=== PATIENT | female | born 1985 | race Caucasian/White ===

== ENCOUNTER 2021-02-02 14:48 | Outpatient (REF) | payer OTHER, SELFPAY ==
[2021-02-04 07:52] LABS: SARS-COV-2 PCR UMBRL NEGATIVE
[2021-02-12 11:30] LABS: SARS-COV-2 PCR UMBRL NEGATIVE
[2021-02-21 13:33] LABS: SARS-COV-2 PCR UMBRL NEGATIVE
[2021-02-25 08:25] LABS: SARS-COV-2 PCR UMBRL NEGATIVE
[2021-03-07 12:04] LABS: SARS-COV-2 PCR UMBRL NEGATIVE
[2021-03-25 07:15] LABS: SARS-COV-2 PCR UMBRL NEGATIVE
[2021-04-01 07:51] LABS: SARS-COV-2 PCR UMBRL NEGATIVE
[2021-04-08 10:07] LABS: SARS-COV-2 PCR UMBRL NEGATIVE
[2021-04-16 08:57] LABS: SARS-COV-2 PCR UMBRL NEGATIVE
[2021-04-22 09:24] LABS: SARS-COV-2 PCR UMBRL NEGATIVE
[2021-04-30 08:25] LABS: SARS-COV-2 PCR UMBRL NEGATIVE
[2021-05-10 08:49] LABS: SARS-COV-2 PCR UMBRL NEGATIVE
[2021-05-12 18:20] LABS: SARS-COV-2 PCR UMBRL NEGATIVE
[2021-05-21 08:10] LABS: SARS-COV-2 PCR UMBRL NEGATIVE
[2021-05-28 08:48] LABS: SARS-COV-2 PCR UMBRL NEGATIVE
[2021-06-11 07:42] LABS: SARS-COV-2 PCR UMBRL NEGATIVE
[2021-06-18 08:04] LABS: SARS-COV-2 PCR UMBRL NEGATIVE
== END 2021-02-02 14:49 | disposition home or self-care (01) ==
LOC: HO.EMPCOV 14:48
PROVIDERS: Visit Provider Internal Medicine
DX: Z20.822 Contact with and (suspected) exposure to COVID-19 (principal)
CPT/HCPCS: 36415; U0003

== ENCOUNTER → 2022-09-02 14:57 | Outpatient (BNVA) | payer OTHER, SELFPAY | PROVIDERS: Visit Provider Physician Assistant | DX: Z13.89 Encounter for screening for other disorder (principal) ==

== ENCOUNTER → 2022-09-12 08:24 | Outpatient (BNVA) | payer OTHER, SELFPAY | PROVIDERS: Visit Provider Surgery | DX: Z13.89 Encounter for screening for other disorder (principal) ==

== ENCOUNTER 2022-09-13 07:25 | Outpatient (REF) | payer OTHER, SELFPAY ==
[2022-09-13 07:40] LABS: MANUAL DIFF FLAG NO
[2022-09-13 08:25] LABS: Basophils Percent Auto 0.5 % (0-2); Eosinophils Absolute Auto 0.1 X10*3/uL (0.0-0.4); Eosinophils Percent Auto 2.4 % (0-4); Hemoglobin 12.7 g/dl (12.0-16.0); Imm Gran Abs Auto 0.01 X10*3/uL (0.00-0.03); Imm Gran Pct Auto 0.2 % (0.0-0.4); Lymphocytes Absolute Auto 1.5 X10*3/uL (1.2-4.9); Lymphocytes Percent Auto 27.8 % (20-40); Mean Corpuscular HGB Conc 34.3 g/dl (31.0-35.0); Mean Corpuscular Hemoglobin 29.5 pg (27.0-33.0); Mean Corpuscular Volume 85.8 fL (80.0-98.0); Mean Platelet Volume 9.5 fL (9.4-12.3); Monocytes Absolute Auto 0.4 X10*3/uL (0.1-1.2); Monocytes Percent Auto 6.3 % (2-11); Neutrophils Absolute Auto 3.5 x10*3/uL (2.0-8.3); Neutrophils Percent Auto 62.8 % (45-73); Platelet Count 327 X10*3/uL (160-400); Red Blood Count 4.31 X10*6/uL (4.20-5.50); Red Cell Distribution Width 11.8 % (11.0-16.0); White Blood Count 5.5 X10*3/uL (4.8-10.8)
[2022-09-13 08:40] LABS: Estimated Average Glucose 100 mg/dL; Hemoglobin A1c % 5.1 %
[2022-09-13 09:21] LABS: Alanine Aminotransferase 10 U/L (0-31); Albumin Level 4.4 g/dL (3.5-5.0); Alkaline Phosphatase 57 U/L (39-117); Anion Gap 13 (12-20); Aspartate Amino Transferase 13 U/L (5-31); Bilirubin Total 0.8 mg/dL (0.0-1.0); Blood Urea Nitrogen 22 mg/dL (9-16); C Reactive Protein 0.37 mg/dL (< or = 0.50); Calcium 9.4 mg/dL (8.4-10.2); Carbon Dioxide 24 mmol/L (22-29); Chloride 108 mmol/L (96-108); Cholesterol 226 mg/dL; Estimated Glomerular Filt Rate > 60; Glucose Random 88 mg/dL (60-115); HDL Cholesterol 34 mg/dL; Iron 88 mcg/dL (30-160); LDL Cholesterol Calculated 157 mg/dl; Percent Iron Saturation 30 % (15-50); Potassium 4.1 mmol/L (3.3-5.1); Sodium 141 mmol/L (135-145); Total Iron Binding Capacity 297 mcg/dL (228-428); Total Protein 7.3 g/dL (6.5-8.0); Triglycerides 178 mg/dL; Unsaturated Iron Binding 209 ug/dL
[2022-09-13 09:36] LABS: Ferritin 133 ng/mL (10-122); Insulin 11 uU/mL (2-29); TSH reflex Free T4 4.11 uIU/mL (0.32-4.0); Vitamin D 25-OH Total 40.2 ng/mL (>30)
[2022-09-13 09:43] LABS: Folate 10.3 ng/mL (> or = 4.0); Vitamin B12 271 pg/mL (200-900)
[2022-09-13 10:17] LABS: Free T4 (Free Thyroxine) 1.09 ng/dL (0.71-1.85)
[2022-09-14 11:39] LABS: Calcium (PTHI) 9.3 mg/dL (8.6-10.2); PTHI 45 pg/mL (16-77)
[2022-09-16 16:38] LABS: Zinc 82 mcg/dL (60-130)
[2022-09-18] LABS: Vitamin A 63 mcg/dL (38-98)
[2022-09-19 12:48] LABS: Vitamin B1 13 nmol/L (8-30)
== END 2022-09-13 07:26 | disposition home or self-care (01) ==
LOC: HO.LAB 07:25
PROVIDERS: PCP Internal Medicine; Visit Provider Surgery
DX: E66.01 Morbid (severe) obesity due to excess calories (principal); E03.9 Hypothyroidism, unspecified; E78.5 Hyperlipidemia, unspecified
CPT/HCPCS: 36415; 80053; 80061; 82306; 82607; 82728; 82746; 83036; 83525; 83540; 83970; 84425; 84439; 84443; 84590; 84630; 85025; 86140

== ENCOUNTER → 2022-09-16 14:00 | Outpatient (REF) | payer OTHER, SELFPAY ==
--- NOTE | ~2022-09-16 | XR_ITS ---
EXAMINATION: XR CHEST CLINICAL INFORMATION: Morbid to severe obesity due to excess calories COMPARISON: None TECHNIQUE: 2 views of the chest were obtained. FINDINGS: No significant abnormality is noted involving the heart, lungs, mediastinum, bony thorax or soft tissues. XR/XR chest 2V IMPRESSION: Unremarkable chest examination.
--- NOTE | 2022-09-16 14:07 | ECG_ITS ---
Test Reason : obesity Blood Pressure : / mmHG Vent. Rate : 063 BPM Atrial Rate : 063 BPM P-R Int : 142 ms QRS Dur : 092 ms QT Int : 388 ms P-R-T Axes : 040 062 040 degrees QTc Int : 397 ms Normal sinus rhythm Normal ECG No previous ECGs available Referred By: Venu Samuels Electronically Signed By:BECKI WALTERS MD
== END ==
LOC: HO.CARD 14:00
PROVIDERS: PCP Internal Medicine; Visit Provider Surgery
DX: E66.01 Morbid (severe) obesity due to excess calories (principal); E03.9 Hypothyroidism, unspecified; E78.5 Hyperlipidemia, unspecified
CPT/HCPCS: 71046; 93005

== ENCOUNTER → 2022-09-20 08:24 | Outpatient (BNVA) | payer OTHER, SELFPAY | PROVIDERS: PCP Internal Medicine; Visit Provider Surgery | DX: Z11.0 Encounter for screening for intestinal infectious diseases (principal) | CPT/HCPCS: 99211 ==

== ENCOUNTER 2022-09-20 16:43 | Outpatient (REF) | payer OTHER, SELFPAY ==
[2022-09-21 15:08] LABS: H Pylori Breath Test Negative (Negative)
== END 2022-09-20 16:44 | disposition home or self-care (01) ==
LOC: HO.LNP 16:43
PROVIDERS: Visit Provider Surgery
DX: E66.01 Morbid (severe) obesity due to excess calories (principal); E03.9 Hypothyroidism, unspecified; E78.5 Hyperlipidemia, unspecified
CPT/HCPCS: 83013

== ENCOUNTER → 2022-09-29 15:32 | Outpatient (BNVA) | payer OTHER, SELFPAY | PROVIDERS: PCP Internal Medicine; Visit Provider Dietitian, Registered | DX: E66.01 Morbid (severe) obesity due to excess calories (principal); Z71.3 Dietary counseling and surveillance | CPT/HCPCS: 97802 ==

== ENCOUNTER → 2022-10-03 08:15 | Outpatient (BNVA) | payer OTHER, SELFPAY | PROVIDERS: PCP Internal Medicine; Referring Provider Internal Medicine; Visit Provider Counselor Mental Health | DX: F43.20 Adjustment disorder, unspecified (principal); E66.01 Morbid (severe) obesity due to excess calories | CPT/HCPCS: 90791 ==

== ENCOUNTER → 2022-10-10 09:02 | Outpatient (BNVA) | payer OTHER, SELFPAY | PROVIDERS: Visit Provider Surgery | DX: Z13.89 Encounter for screening for other disorder (principal) ==

== ENCOUNTER 2022-11-03 07:30 | Outpatient (REF) | payer OTHER, SELFPAY ==
--- NOTE | ~2022-11-03 | FL_ITS ---
EXAMINATION: XR FLUOROSCOPY UPPER GI WITH AIR CLINICAL INFORMATION: Morbid/severe obesity due to excess calories COMPARISON: None TECHNIQUE: Routine upper GI air-contrast study was performed in upright and lying position. FINDINGS: Following oral administration of thick barium and effervescent granules there is normal propagation of bolus from the oral cavity through the pharynx, esophagus without any evidence of obstruction, narrowing or stricture. The course, caliber and peristalsis of the stomach and the duodenum is normal. The mucosal pattern of the stomach and duodenum is normal. No gastroesophageal reflux or hiatal hernia FLUOROSCOPY TIME: 1.8 minutes DOSE AREA PRODUCT: 46.414 uGy-m2 (microgray-meter squared) FL/FL upper GI w air IMPRESSION: Unremarkable upper GI air-contrast study
--- NOTE | ~2022-11-03 | US_ITS ---
EXAMINATION: US COMPLETE ABDOMEN WITH LIVER ELASTOGRAPHY CLINICAL INFORMATION: Morbid obesity. COMPARISON: None. TECHNIQUE: Real-time imaging of the abdominal viscera. Noninvasive ultrasound liver fibrosis assessment is performed using Kali ElastPQ point quantification shear wave elastography (2D-SWE) with a C5-2 MHz transducer. Multiple elastography samples are obtained. FINDINGS: PANCREAS: Normal. The visualized pancreatic head and body are normal in appearance. The remainder of the pancreas is obscured from visualization by the overlying bowel gas. ABDOMINAL AORTA: The proximal, middle, and distal aortic segments are normal in caliber. INFERIOR VENA CAVA: Visualized portions are normal. LIVER: Normal. The liver demonstrates normal size, contour and echogenicity. No focal lesion or intrahepatic biliary duct dilatation. The right lobe measures 15.4 cm in length. The left lobe measures 8.3 cm in length. Portal flow is towards the liver (hepatopetal). Shear wave liver elastography median stiffness is 2.36 m/s (reference: normal median stiffness is 1.3 m/s or less). IQR/median stiffness to assess sampling precision is 0.13 (reference: good quality data set is IQR/median stiffness of 0.15 or less). GALLBLADDER: Normal. The gallbladder is physiologically distended without evidence of stones, sludge, polyps, wall thickening or pericholecystic fluid. COMMON BILE DUCT: Normal in caliber measuring 0.1 cm in diameter. RIGHT KIDNEY: Normal. There is mild pelviectasis, without som hydronephrosis. No renal calculi or focal parenchymal lesions. The kidney measures 12.1 cm in maximum dimension. LEFT KIDNEY: Normal. No hydronephrosis. No renal calculi or focal parenchymal lesions. The kidney measures 10.8 cm in maximum dimension. SPLEEN: Normal. The spleen measures 11.5 cm in maximum dimension. FREE FLUID: None. US/US abdomen comp w elastography IMPRESSION: Liver elastography: Measuremensts are consistent with compensated advanced chronic liver disease. REFERENCE: Society of Radiologists in Ultrasound Liver Stiffness Thresholds (2020): LIVER STIFFNESS THRESHOLDS: *Liver Stiffness equal or less than 1.3 m/s: High probability of being normal. *Liver Stiffness less than 1.7 m/s: In the absence of other known clinical signs, rules out compensated advanced chronic liver disease. *Liver Stiffness 1.7-2.1 m/s: Suggestive of compensated advanced chronic liver disease but need further test for confirmation. *Liver Stiffness over 2.1 m/s: Rules in compensated advanced chronic liver disease. *Liver Stiffness over 2.4 m/s: Suggestive of clinically significant portal hypertension. QUALITY OF DATA SET: *IQR/Median value equal or less than 0.15 implies a quality data set. *IQR/Median value over 0.15 implies a poor quality data set. SIGNIFICANT CHANGE FROM PRIOR EXAM: Significant change if liver stiffness measurement is 10% or greater from prior exam. OTHER CONSIDERATIONS: The stage of liver fibrosis may be overestimated in the setting of acute hepatitis, liver inflammation, elevated liver function tests, hepatic vascular congestion, obstructive cholestasis, non-fasting state, and infiltrative diseases such as amyloidosis and lymphoma. In some patients with NAFLD, the liver stiffness thresholds for compensated advanced chronic liver disease may be lower. In causes other than viral hepatitis and NAFLD, liver stiffness thresholds are not well established.
== END 2022-11-03 07:31 | disposition home or self-care (01) ==
LOC: HO.US 07:30
PROVIDERS: Visit Provider Surgery
DX: Z01.818 Encounter for other preprocedural examination (principal); E66.01 Morbid (severe) obesity due to excess calories; K21.9 Gastro-esophageal reflux disease without esophagitis; E78.5 Hyperlipidemia, unspecified
CPT/HCPCS: 74246; 76705; 76981

== ENCOUNTER → 2022-11-04 08:13 | Outpatient (BNVA) | payer OTHER, SELFPAY | PROVIDERS: Visit Provider Surgery | DX: E66.9 Obesity, unspecified (principal); Z68.36 Body mass index [BMI] 36.0-36.9, adult; K21.9 Gastro-esophageal reflux disease without esophagitis; R11.0 Nausea; Z01.818 Encounter for other preprocedural examination ==

== ENCOUNTER 2022-11-10 07:18 | Outpatient (REF) | payer OTHER, SELFPAY ==
[2022-11-10 07:35] LABS: MANUAL DIFF FLAG NO
[2022-11-10 08:09] LABS: Basophils Percent Auto 0.4 % (0-2); Eosinophils Absolute Auto 0.1 X10*3/uL (0.0-0.4); Eosinophils Percent Auto 1.4 % (0-4); Hematocrit 39.4 % (37.0-47.0); Hemoglobin 13.3 g/dl (12.0-16.0); Imm Gran Abs Auto 0.02 X10*3/uL (0.00-0.03); Imm Gran Pct Auto 0.4 % (0.0-0.4); Lymphocytes Percent Auto 19.2 % (20-40); Mean Corpuscular HGB Conc 33.8 g/dl (31.0-35.0); Mean Corpuscular Hemoglobin 29.4 pg (27.0-33.0); Mean Corpuscular Volume 87.2 fL (80.0-98.0); Mean Platelet Volume 10.6 fL (9.4-12.3); Monocytes Absolute Auto 0.4 X10*3/uL (0.1-1.2); Monocytes Percent Auto 7.6 % (2-11); Neutrophils Absolute Auto 3.6 x10*3/uL (2.0-8.3); Platelet Count 316 X10*3/uL (160-400); Red Blood Count 4.52 X10*6/uL (4.20-5.50); Red Cell Distribution Width 11.9 % (11.0-16.0); White Blood Count 5.1 X10*3/uL (4.8-10.8)
[2022-11-10 08:26] LABS: INTERNATIONAL NORM RATIO 1.1 (0.9-1.1); Prothrombin Time 12.4 SEC (10.0-13.1)
[2022-11-10 08:29] LABS: Partial Thromboplastin Time 33.6 SEC (26.0-36.4)
[2022-11-10 08:38] LABS: Alanine Aminotransferase 8 U/L (0-31); Albumin Level 4.6 g/dL (3.5-5.0); Alkaline Phosphatase 52 U/L (39-117); Anion Gap 15 (12-20); Aspartate Amino Transferase 12 U/L (5-31); Bilirubin Total 1.2 mg/dL (0.0-1.0); Blood Urea Nitrogen 16 mg/dL (9-16); C Reactive Protein 0.21 mg/dL (< or = 0.50); Calcium 9.9 mg/dL (8.4-10.2); Carbon Dioxide 26 mmol/L (22-29); Chloride 105 mmol/L (96-108); Cholesterol 179 mg/dL; Estimated Glomerular Filt Rate > 60; Glucose Random 76 mg/dL (60-115); HDL Cholesterol 35 mg/dL; LDL Cholesterol Calculated 126 mg/dl; Potassium 4.4 mmol/L (3.3-5.1); Sodium 142 mmol/L (135-145); Total Protein 7.2 g/dL (6.5-8.0); Triglycerides 91 mg/dL
[2022-11-10 09:06] LABS: Estimated Average Glucose 94 mg/dL; Hemoglobin A1c % 4.9 %
[2022-11-10 09:34] LABS: Insulin 6 uU/mL (2-29); TSH reflex Free T4 1.56 uIU/mL (0.32-4.0)
== END 2022-11-10 07:19 | disposition home or self-care (01) ==
LOC: HO.LAB 07:18
PROVIDERS: PCP Internal Medicine; Visit Provider Surgery
DX: E66.9 Obesity, unspecified (principal); Z68.36 Body mass index [BMI] 36.0-36.9, adult
CPT/HCPCS: 36415; 80053; 80061; 83036; 83525; 84443; 85025; 85610; 85730; 86140

== ENCOUNTER → 2022-11-11 12:51 | Outpatient (BNVA) | payer OTHER, SELFPAY | PROVIDERS: PCP Internal Medicine; Visit Provider Surgery ==

== ENCOUNTER 2022-11-15 09:23 | Inpatient (IN) | payer OTHER, SELFPAY ==
[2022-11-10 12:54] VITALS: BMI 35.9
--- NOTE | 2022-11-11 18:11 | MHC.SHP ---
Pre-Procedural Eval Section A Date of Service: 11/11/22 The patient is an INPATIENT: Yes The History & Physical has been completed within 30 days and I have reviewed it.: Yes Section B Chief Complaint: Obesity, unspecified Relevant Family History (Specify if Yes): Yes Relevant Social History: None Present Medications: None Medical History: No relevant PMH History of Previous Operations: No relevant previous surgery Allergies: Allergies Allergy/AdvReac Type Severity Reaction Status Date / Time No Known Allergies Allergy Verified 09/20/22 08:49 Review of Systems Sugical H&P ROS: Negative: Constitution, Cardiovascular, Respiratory, Neurological, Psychiatric, Hem-Onc, Allergic/Immunologic, Gastrointestinal, Genitourinary, Musculoskeletal, Integumentary, Endocrine and Eyes/Ears/Nose/Throat Exam Surgical H&P Exam: Normal: HEENT, Normal: Heart, Normal: Lungs, Normal: Extremities, Normal: Abdomen, Normal: Skin and Normal: Neurological Plan Diagnosis/Plan: Unchanged I have reviewed the history and physical and performed a pertinent physical examination on my patient. No changes have occurred unless specified. Time Spent With Patient Time: Total time managing care of this patient today ____ minutes.
--- NOTE | 2022-11-14 09:36 | HO.ANESPROP2 ---
Documented by User: Ayana Young NP 11/14/22 09:37 HPI - Anesthesia Eval Consult details Narrative: 37yo F for Gastrectomy Sleeve,EGD,poss diaphragmatic hernia,poss ventral hernia,poss open, PMFSH Active Problems Active Problems: All Active Problems (Updated 11/09/22 @ 08:36 by Lisbeth Vasquez RN) Adjustment disorder, unspecified (Acute) Obesity (Acute) BMI 37.0-37.9, adult (Acute) BMI 36.0-36.9,adult (Acute) Back pain (Acute) Hyperlipidemia (Acute) Hypothyroidism (Acute) Morbid obesity (Acute) Past Medical History Medical History (Updated 11/15/22 @ 10:27 by Venu Samuels MD) Back pain History of COVID-19 Hyperlipidemia Hypothyroidism Morbid obesity Family History Family History (Updated 09/02/22 @ 15:20 by SHANON Dumas) Mother Brazos's disease Father Diabetes Hypertension High cholesterol Sister No problems noted. Sister No problems noted. Sister No problems noted. Son No problems noted. Son No problems noted. Surgical History Surgical History (Updated 11/15/22 @ 14:02 by VLADISLAV Tatum) No pertinent past surgical history Social History Social History (Updated 09/02/22 @ 15:18 by SHANON Dumas) Are you a primary career and guidance counselor to a significant other at home: No Do you presently have visiting nurse or other home services: No Alcohol intake: never Patient Tobacco Use Status: Former Tobacco user Quit Date: age 22 Tobacco use type: Cigarette Years Smoked: 8 Use of substances other than those prescribed or required for medical reasons: No Have you been hit, kicked, punched, or otherwise hurt by someone within the past year? If so, by whom?: No Are you DNR?: No Advance Directives: No ( is primary contact) Advance Directives Information Provided: Yes (brochure mailed) Advance Directives on File: No Recently lost weight without trying: No Eating poorly because of decreased appetite: No Nutrition Risks: No Nutritional Risk Patient : No FDLMP: N/A-has IUD : No Poor oral hygiene: No (has some bone loss upper front teeth but nothing loose) Meds Allergies Allergy/AdvReac Type Severity Reaction Status Date / Time No Known Allergies Allergy Verified 11/15/22 09:27 Home Medications Medication Instructions Recorded Confirmed Last Taken Type IUD 1 ea vaginal ONCE 09/02/22 11/15/22 Unknown History cholecalciferol (vitamin D3) 50 50 mcg PO DAILY 09/02/22 11/15/22 11/14/22 History mcg (2,000 unit) capsule levothyroxine 50 mcg capsule 50 mcg PO DAILY 09/02/22 11/15/22 11/14/22 History Exam Exam Date and Time: November 14, 2022 0936 Height,Weight and Vital Signs: Height 5 ft 5.5 in Weight 99.337 kg Pertinent Lab Results Pertinent Lab Results: Laboratory Tests 11/10/22 07:30 Blood Type A Negative Antibody Screen NEGATIVE Laboratory Tests 11/10/22 11/10/22 07:30 07:30 WBC 5.1 Hgb 13.3 Hct 39.4 Plt Count 316 Sodium 142 Potassium 4.4 Chloride 105 Carbon Dioxide 26 BUN 16 Creatinine 0.90 Narrative Narrative: EKG 08/2022 Vent. Rate : 063 BPM ? ? Atrial Rate : 063 BPM ?? P-R Int : 142 ms? QRS Dur : 092 ms ? ? QT Int : 388 ms ? ? ? P-R-T Axes : 040 062 040 degrees ?? QTc Int : 397 ms ? Normal sinus rhythm Normal ECG No previous ECGs available Assessment and Plan Assessment Anesthesia Assessment: Chart Reviewed Documented by User: Tyler Knowles MD 11/15/22 16:24 REPLACED BY [facility] Past Medical History Medical History (Updated 11/15/22 @ 10:27 by Venu Samuels MD) Back pain History of COVID-19 Hyperlipidemia Hypothyroidism Morbid obesity Functional capacity: independent ambulation Family History Family History (Updated 09/02/22 @ 15:20 by SHANON Dumas) Mother Brazos's disease Father Diabetes Hypertension High cholesterol Sister No problems noted. Sister No problems noted. Sister No problems noted. Son No problems noted. Son No problems noted. Family history of problems with anesthesia: No Surgical History Surgical History (Updated 11/15/22 @ 14:02 by VLADISLAV Tatum) No pertinent past surgical history History of Problems with Anesthesia: No Social History Social History (Updated 09/02/22 @ 15:18 by SHANON Dumas) Are you a primary career and guidance counselor to a significant other at home: No Do you presently have visiting nurse or other home services: No Alcohol intake: never Patient Tobacco Use Status: Former Tobacco user Quit Date: age 22 Tobacco use type: Cigarette Years Smoked: 8 Use of substances other than those prescribed or required for medical reasons: No Have you been hit, kicked, punched, or otherwise hurt by someone within the past year? If so, by whom?: No Are you DNR?: No Advance Directives: No ( is primary contact) Advance Directives Information Provided: Yes (brochure mailed) Advance Directives on File: No Recently lost weight without trying: No Eating poorly because of decreased appetite: No Nutrition Risks: No Nutritional Risk Patient : No FDLMP: N/A-has IUD : No Poor oral hygiene: No (has some bone loss upper front teeth but nothing loose) Meds Allergies Allergy/AdvReac Type Severity Reaction Status Date / Time No Known Allergies Allergy Verified 11/15/22 09:27 Home Medications Medication Instructions Recorded Confirmed Last Taken Type IUD 1 ea vaginal ONCE 09/02/22 11/15/22 Unknown History cholecalciferol (vitamin D3) 50 50 mcg PO DAILY 09/02/22 11/15/22 11/14/22 History mcg (2,000 unit) capsule levothyroxine 50 mcg capsule 50 mcg PO DAILY 09/02/22 11/15/22 11/14/22 History Exam Airway Mallampati Class: III TM Dist: >3cm Neck ROM: Full Loose/Missing/Broken Teeth: Yes (Loose bottom teeth ) Heart: S1,S2 Lungs: b/l breath sounds Assessment and Plan Assessment Anesthesia Assessment: Anesthesia Plan Discussed Final Anesthetic Review Family History of Problems with Anesthesia: No History of Problems with Anesthesia: No NPO: Yes ASA Class: III Final Preanesthetic Review: Meds/Allgs Chart Reviewed, Consent Obtained/Reviewed and Anes Risks/Benef Reviewed Patient Risk: Intermediate Procedure Risk: Intermediate Anesthetic Plan Anesthetic Plan: GA Disposition: Standard PACU and Inp. Admit - Standard Bed
[2022-11-14 12:43] LABS: COVID-19 Test Negative (Negative); IDNOW Serial# 9DB6401D
[2022-11-15] VITALS (12 sets, daily range): BP systolic 110–132; BP diastolic 62–82; PULSE 72–92; RESP 16–24; TEMP 36.1–36.5; O2SAT 95–100
--- NOTE | 2022-11-15 09:28 | PHA.MEDREC ---
Pharmacy Consult ? Medication Reconciliation Pharmacy has reviewed the medication reconciliation completed by nursing.
[2022-11-15 09:38] LABS: UPreg QC Valid YES; Urine Pregnancy NEGATIVE (NEGATIVE)
[2022-11-15] MEDS: Lactated Ringers 1,000 ML 999 ML IV (09:57)
[2022-11-15] MEDS: Lactated Ringers 1,000 ML 100 ML IVCONT ×2 (09:57→13:59)
--- NOTE | 2022-11-15 10:23 | P.BOP_ITS ---
Brief Operative Note Date of Service: 11/15/22 Pre-op diagnosis: Severe obesity with comorbidities (see below) Post-op diagnosis: same Procedure: INITIAL PATIENT BMI ON PRESENTATION AT OUR OFFICE: 40.2 kg/m2 LAST BMI BEFORE SURGERY: 35.5 kg/m2 COMORBIDITIES: hypothyroidism, hyperlipidemia, back pain, livr fibrosis ?The patient presented to the Weight Management Program with significant obesity that was negatively impacting the patient's comorbidities as listed above.? The program is a phased program with a special focus on preoperative medical weight management to promote substantial weight loss and prepare the patients for the second phase of the program: bariatric surgery. The patient participated in an intensive weekly lifestyle ?intervention and exercise program during which the patient ?has lost between the initial office visit and the last preoperative visit 28.8lbs, or 11.75% of initial actual body weight. It was deemed appropriate for the patient to now have bariatric surgery. In light of the current Covid-19 pandemic and the well documented strong association of obesity and increased risk of worse outcomes if infected with Covid-19 (REFERENCES: https://pubmed.ncbi.nlm.nih.gov/69883331/ ,? https://pubmed.ncbi.nlm.nih.gov/56562934/ ), any delay in undergoing bariatric surgery may lead to the patient's worsening health condition and increased?risk of more severe Covid-19 disease if infected. In addition a recent?study from [facility] published in [employer] on 08/23/2021 ([email or web address]) found that, among patients with obesity, substantial weight loss achieved with surgery was associated with improved outcomes of COVID-19 infection. The findings suggest that obesity can be a modifiable risk factor for the severity of COVID-19 infection. In addition, the patient met the BMI-criteria for bariatric surgery based on the BMI on initial presentation. The patient should not be penalized for achieving such weight loss because ?it is not sustainable long-term without surgical intervention and it was achieved in preparation for bariatric surgery ?under my direction and based on my published research ([email or web address]).[email or web address] and? https://www.soard.org/article/E7393-7132(39)57662-X/pdf ) ?that a 10% preoperative weight loss improves long-term weight loss after surgery and reduces perioperative complications.? Insurance carriers such as [facility] have endorsed my recommendations ?and have included in their policies criteria to include a 10% preoperative weight loss requirement. PROCEDURE: Esophago-gastroscopy, laparoscopic sleeve gastrectomy and laparoscopic gastropexy INDICATIONS: This is a 37 year-old female who was electively scheduled for laparoscopic, possibly open sleeve gastrectomy. The risks and complications of the procedure were discussed with the patient in advance, particularly the possibility of ; pulmonary embolism; staple line leak; bleeding; GERD; cardiac, pulmonary, or renal complications; as well as long-term problems such as insufficient weight loss, vitamin deficiency, strictures, or ulcers. The patient understood all the risks, and was in agreement to proceed with surgery. DESCRIPTION OF PROCEDURE: After informed consent was obtained from the patient, the patient was given preoperative antibiotics, and was transferred to the operating room. After successful induction of general anesthesia, pneumatic compression devices were placed on both lower extremities. An upper endoscopy was performed next. The oropharynx and esophagus appeared to be within normal limits. There was no diaphragmatic hernia present consistent with the findings of the preoperative upper GI. The stomach was entered. Then after all fluid and air were suctioned and the stomach was fully decompressed, the scope was withdrawn and secured in the mid esophagus. The patient was then prepped and draped in the usual sterile manner, and abdominal access was established at the right upper quadrant with the Tee technique. A 12 mm blunt port was inserted, and the abdomen was insufflated with CO2 to a pressure of 15 mmHg. Under direct visualization, additional ports were placed, specifically two 5 mm Versi-step ports to the left upper quadrant, and a 5 mm Versi-Step port to the right upper quadrant. 1% lidocaine plain was used to infiltrate all port sites as well as all fascia defects. Using the EndoClose suture passer device, I placed a #1 Polysorb tie across the falciform ligament in order to retract it up against the abdominal wall and prevent injury of the ligament with our instruments during the procedure. Following that, the patient was placed in a steep reverse Trendelenburg position . An additional 5 mm port was placed to the right flank for the Mediflex retractor that was used to retract the left lobe of the liver. The gastro-esophageal fat pad was opened with the ultrasonic device (Thunderbeat, Olympus) and the anterior esophagus and hiatus were exposed. The angle of His was opened with the ultrasonic device the fundus of the stomach from any diaphragmatic and splenic attachments. I then opened the gastrocolic ligament between the transverse colon and the greater curvature of the stomach with the ultrasonic device to enter the lesser sac and facilitate the ligation of the short gastric vessels. I started at a mid-point along the greater curvature and using the Thunderbeat, all short gastric vessels were divided all the way to the angle of His until the left prem was completely dissected at its entirety. I then divided the gastro-colic ligament distally to a distance of about 3-4 cm proximal to the pylorus. The stomach was then divided transversely with one Endo KE-45 purple, two KE- 45 orange loads and three KE-6s0 articulating orange loads using the AEON stapler and loads. Every effort was made that the gastric sleeve had a tubular shape and an even caliber throughout. Once the sleeve resection was completed, the staple line of the gastric sleeve was reinforced with Hemoclips. The resected stomach was retrieved without difficulty from the Tee port. A gastropexy was then performed in order to prevent postoperative GERD and partial gastric volvulus. Several interrupted 2.0 Surgidac sutures were placed between the sleeve's staple line and the previously divided greater omentum and gastro-colic ligament using the Endo-Stitch device. ?An upper endoscopy was performed. There was no narrowing at the GE junction. The scope was easily advanced all the way to the pylorus which was clearly visualized. There was no narrowing anywhere and the sleeve's caliber was even throughout. The sleeve's staple line was inspected and there was no evidence of ischemia, bleeding or dehiscence. At that point the gastroscope was withdrawn from the patient?s mouth while we were decompressing the bowel and the stomach from any remaining air. I looked into the lesser sac to see how the sleeve was situating and it was situating well. There was no bleeding from the staple line, spleen, or short gastric vessels. The Mediflex retractor was removed, and the undersurface of the liver was inspected and there was no bleeding. The patient was placed in supine position. I closed the fascial defect of the 12 mm port site with a figure of eight #1 P olysorb suture. Then 30cc Ropivacaine plain with 10 mg of Dexamethasone were used to infiltrate the fascial closure as well as all skin incisions. A total of 7ml of Zynrelef was applied in the Tee wound. At this point, the abdomen was deflated, all ports were removed under direct vision, and no bleeding was noted from any of the port sites. The skin incisions were irrigated with saline and were closed with 4-0 absorbable monofilament sutures. Steri-Strips and OpSites were used to cover all incisions. The patient was extubated and was transferred in stable condition to the recovery room for further care. I was present and performed all dubon parts of the procedure. Ms. Tolbert was the corporate administrative assistant. There were no residents to assist with this case. Murray Samuels MD, PhD, FACS Surgeon: Venu Samuels MD Anesthesia: GETA, local and other (TAP block and 7ml Zynrelef) Was an Tariff Inspector used for this Procedure?: No Tariff Inspector: Ammy Tolbert Estimated blood loss (mL): 10 IV fluids (mL): 3,000 Urine output (mL): 0 (No Wiley to record output) Pathology: other (Stomach) Condition: stable Disposition: PACU
--- NOTE | 2022-11-15 10:26 | P.PNGS_ITS ---
Subjective Subjective Date of Service: 11/16/22 Interval history: Feels well. Mild incisional pain. She is tolerating phase 1 bariatric diet Physical Exam Vital Signs: Vital Signs: Last Vital Signs Temp 97.7 F 11/15/22 09:29 Pulse 92 11/15/22 09:29 Resp 16 11/15/22 09:29 BP 110/68 11/15/22 09:29 Pulse Ox 100 11/15/22 09:29 O2 Del Method 11/15/22 09:29 BMI result Body Mass Index 35.9 GI: Inspection: Yes normal to inspection, Yes incision (clean, dry and intact) and Yes obesity Palpation (GI): Soft to palpation Extrem: Right lower extremity: normal to inspection (no calf tenderness) Left lower extremity: normal to inspection (no calf tenderness) Objective Data Active Medications Fentanyl (Fentanyl Citrate/Pf 100 Mcg/2 Ml Vial) 25 mcg IVPUSH Q5M PRN; Protocol PRN Reason: Pain, Moderate (Pain Scale 4-6 Hydromorphone HCl (Hydromorphone Hcl 0.5 Mg/0.5 Ml Syringe) 0.25 mg IVPUSH Q5M PRN; Protocol PRN Reason: Pain, Severe (Pain Scale 7-10) Lactated Ringer's (Lr) 1,000 mls @ 100 mls/hr IVCONT .Q10H [facility] Last Admin: 11/15/22 09:57 Dose: 100 mls/hr Documented By: TYLER Lactated Ringer's (Lr) 1,000 mls @ 999 mls/hr IV .Q1H1M [facility] Stop: 11/15/22 11:30 Last Admin: 11/15/22 09:57 Dose: 999 mls/hr Documented By: TYLER Promethazine HCl 6.25 mg/ (Sodium Chloride) 50.25 mls @ 201 mls/hr IV ONCE PRN PRN Reason: Nausea and Vomiting Labs 11/15/22 13:51 11/15/22 13:51 Labs: Laboratory Results - last 24 hr 11/14/22 11/15/22 12:19 09:19 Urine Test NEGATIVE COVID-19 ([facility]) Negative COVID-19 Clin Com See Note Procedures Date of Service Date of Service: 11/16/22 Progress Note: A&P Assessment and plan (1) Obesity: Status: Acute Assessment and Plan: s/p laparoscopic sleeve gastrectomy and gastropexy Doing well Will check am labs and if OK the patient will be discharged home (2) BMI 35.0-35.9,adult: Status: Acute (3) Hyperlipidemia: Status: Acute (4) Hypothyroidism: Status: Acute (5) Back pain: Status: Acute (6) Liver fibrosis: Status: Acute Time Spent With Patient Time: Total time managing care of this patient today ____ minutes. Quality Stroke Does the patient have a stroke diagnosis?: No VTE Prior VTE?: No VTE Risk Level:: Surgical - moderate VTE Device Contraindication: N/A - Device Ordered VTE Drug Contraindication: Treatment Not Indicated
[2022-11-15 14:01] LABS: Hematocrit 37.2 % (37.0-47.0); Hemoglobin 12.1 g/dl (12.0-16.0)
--- NOTE | 2022-11-15 14:11 | P.DS_ITS ---
DS: Providers Provider Date of Service: 11/16/22 Date of admission: 11/15/22 09:23 Primary care physician: Susie Figueroa MD DS: Diagnosis Discharge Diagnosis (1) Obesity: Status: Acute (2) BMI 35.0-35.9,adult: Status: Acute (3) Hyperlipidemia: Status: Acute (4) Hypothyroidism: Status: Acute (5) Back pain: Status: Acute (6) Liver fibrosis: Status: Acute DS: Summary Hospital Course Hospital Course: ADMITTING DIAGNOSIS: morbid obesity,?hyppthyroidism, hyperlipidemia, back pain ? DISCHARGE DIAGNOSIS: same, s/p laparoscopic sleeve gastrectomy and gastropexy ? PAST SURGICAL HISTORY:?n/a ? PROCEDURE: upper endoscopy, laparoscopic sleeve gastrectomy and gastropexy ? DISCHARGE SUMMARY: ? History of Present Illness: ? The patient is a? 37? year-old woman with a BMI of? ?35.9 ? kg/m2 and associated co-morbidities as described above. The patient had extensive work-up, lost? 35.2 ? lbs preoperatively and was electively scheduled for laparoscopic, possible open sleeve gastrectomy and gastropexy. Risks and complications of the surgery were discussed with the patient in advance, particularly the possibility of , pulmonary embolism, anastomotic leak, bleeding, bowel injury, GERD, cardiac, renal or pulmonary complications. The patient understood all the risks and was in agreement with the surgical plan. ? Hospital Course: ? The patient underwent an uneventful laparoscopic sleeve gastrectomy with gastro pexy on the day of admission. Postoperatively, the patient was transferred to the surgical floor. The patient received IV Acetaminophen and IV dilaudid for pain control. Patient was started on bariatric phase 1 diet POD #0. On postoperative day one, the patient was feeling well without nausea, vomiting, fevers, or tachycardia. The patient had some mild incisional pain and the abdomen was soft.? ? On the morning of postoperative day one, the patient was continued on 1 ounce of water or ice every half hour. During the day, the patient did fairly well, having some incisional pain, but able to ambulate adequately and to tolerate liquids well. ? Since the patient is doing well, we decided that the patient was ready to be discharged. The patient was given instructions to follow-up with me next week and to call my office for any fever over 101, persistent abdominal pain, nausea, vomiting, GERD, symptoms of DVT such as calf tenderness, or leg swelling, or pulmonary embolism such as chest pain or shortness of breath.? The patient was also instructed to drink 40-60 ounces of liquids per day using the 1-ounce cups. The patient had been given prescriptions for Tylenol for pain, Zofran prn for nausea, and pantoprazole and carafate previously. The patient was encouraged to ambulate and use the incentive spirometer. The patient was allowed to shower, but no baths, and encouraged to stay active at home. All of these instructions were given to the patient personally. All questions were answered and the patient understood all instructions, the instructions were also given to the patient in print. Time Spent with Patient Time attestation: Total time managing care of this patient today ____ minutes. Discharge coordination time: Less than 30 minutes Quality: Safe Use of Opioids Does Pt have an Active Cancer Diagnosis on the Problem List?: No Quality: Stroke Does the patient have a stroke diagnosis?: No Physical Exam Vital Signs: Vital Signs: Last Vital Signs Temp 97.4 F 11/15/22 13:24 Pulse 76 11/15/22 13:54 Resp 21 H 11/15/22 13:54 BP 125/78 11/15/22 13:54 Pulse Ox 96 11/15/22 13:54 O2 Del Method 11/15/22 13:54 O2 Flow Rate 2 11/15/22 13:54 BMI result Body Mass Index 35.9 DS: Data Data Completed and Pending Pending studies at discharge: Pending at discharge 11/15/22 12:24 Surgical [PTH] Routine Labs on day of discharge: Laboratory Results - last 24 hr 11/15/22 11/15/22 09:19 13:51 Hgb 12.1 Hct 37.2 Urine Test NEGATIVE Discharge Plan Discharge Anticipated Discharge Date/Time: 11/16/22 10:00 Patient Disposition: Home, Self-Care Discharge Diagnosis: s/p laparoscopic sleeve gastrectomy and gastropexy Referrals: Susie Warren MD [Primary Care Provider] - 1 Week Discharge Medications: Continued levothyroxine 50 mcg capsule 50 mcg PO DAILY pantoprazole 40 mg tablet,delayed release (DR/EC) 40 mg PO DAILY Qty: 30 2RF Discontinued cholecalciferol (vitamin D3) 50 mcg (2,000 unit) capsule 50 mcg PO DAILY IUD 1 ea vaginal ONCE Discharge Orders: Discharge Order (Routine); Ordered 11/16/22 Ordered By: Venu Samuels Activity on Discharge: No heavy lifting Stand Alone Forms: Patient Portal Discharge page Care Plan Goals: weight loss Health Concerns: obesity Plan of Treatment: No tub baths, sex or returning to work until discussed at first post op appointment. No alcohol, tobacco or illegal drug use. Continue to use incentive spirometer hourly while awake. Walk in home for 5- 10 minutes every 2 hours during the first week. Wear abdominal binder with activity. Follow all meal plan instructions from your bariatric surgeon. Review bariatric handbook and call with any questions. Discharge Instructions 1. Please call your doctor or come back to the emergency room should any new symptoms arise. 2. Activity: abstain from alcohol,? limited stair climbing, no bending, no driving, no exercise, no illicit substances, no lifting, no sex, no tub bath, no work. 4. Diet: follow your bariatric surgeons recommendations for advancing diet. 5. Dressing Change/Wound Care: Your incisions are covered with waterproof dressings. You can shower with these and pat dry. Do not rub over dressings or incisions. If the area is tender, you may apply an ice pack for short intervals (no more than 20 minutes on, followed by at least 20 minutes off). Do not apply heat. Do not use creams, lotions, or topical antibiotics unless instructed to do so by your surgeon. 6. Call your doctor if: - Your temperature exceeds 101.5 F - You experience excessive pain or swelling - You have an unexpected reaction to medication - You have excessive bleeding - You experience continued vomiting/nausea - Your incision begins to separate - Your incision shows signs of infection such as increased redness, swelling, excessive pain, heat, or drainage (light blood or clear fluid is normal) General instructions: No lifting greater than 10 lbs for the next 6 weeks[address] driving within 24 hours of taking narcotic pain medications. If you do not move your bowels in the next 2 days, please take milk of magnesia over the counter. Please follow the post op diet and do not advance your diet until you are seen in the office in about 2 weeks. Please walk around your home every hour or two to prevent blood clots from forming in your legs. You do not need to wake from sleeping to walk. Please sleep in a bed or couch to prevent kinking at the hips and knees. Please take your incentive spirometer (your lung development specialist) home with you and use it for the next few days to prevent pneumonias. You may shower, no hot tubs, baths or swimming pools. Please call the office with any questions or concerns s uch as increasing abdominal pain, fever, chills, shortness of breath, chest pain, leg pain or swelling, or redness or drainage from your incisions. Please make sure you are consuming 40-60 ounces of total fluids per day. Avoid all carbonation. Do not hesitate to contact the office with any questions at . The patient's medical history has been reviewed and they are considered low risk for post op DVT and therefore DVT prophylaxis is not considered necessary. Travel after surgery was reviewed. The patient has not disclosed any travel plans during the first 30 days after surgery and they have been advised that within the first 30 days after surgery any bus, plane, train or car travel over 2 hours in duration is contraindicated due to the possibility of developing blood clots from immobility. Any travel, needs to include periods of ambulation of 10 minutes in duration every 2 hours.? The patient was instructed to discuss any plans for travel during this period with their bariatric surgeon. Assessment: s/p laparoscopic sleeve gastrectomy and gastropexy Discharge Date/Time: 11/16/22 09:29
[2022-11-15 14:26] LABS: Anion Gap 21 (12-20); Blood Urea Nitrogen 12 mg/dL (9-16); Calcium 8.9 mg/dL (8.4-10.2); Carbon Dioxide 18 mmol/L (22-29); Chloride 106 mmol/L (96-108); Creatinine Clr Calc Pharmacy 103.7; Estimated Glomerular Filt Rate > 60; Glucose Random 95 mg/dL (60-115); Potassium 4.3 mmol/L (3.3-5.1); Sodium 141 mmol/L (135-145)
[2022-11-15] MEDS: Metoclopramide HCl 10 MG/2 ML VIAL IVPUSH (15:23)
[2022-11-15] MEDS: ceFAZolin Sodium/Dextrose,Iso 2 GM/50 ML PIGGYBACK IV (16:09)
[2022-11-15] MEDS: Acetaminophen 1,000 MG/100 ML PIGGYBACK 16.7 MG IV ×2 (16:50→22:33)
[2022-11-15] MEDS: ondansetron HCL 4 MG/2 ML VIAL IVPUSH (18:17)
[2022-11-15] MEDS: Famotidine/PF 20 MG/2 ML VIAL IVPUSH (20:33)
[2022-11-16] MEDS: Lactated Ringers 1,000 ML 100 ML IVCONT (01:08)
[2022-11-16] MEDS: ondansetron HCL 4 MG/2 ML VIAL IVPUSH (02:31)
[2022-11-16 02:48] VITALS: BP 141/67; PULSE 81; RESP 16; TEMP 36.4; O2SAT 98
[2022-11-16] MEDS: Acetaminophen 1,000 MG/100 ML PIGGYBACK 16.7 MG IV (04:25)
[2022-11-16] MEDS: Levothyroxine Sodium 50 MCG TABLET PO (04:29)
[2022-11-16 06:12] LABS: MANUAL DIFF FLAG NO
[2022-11-16 06:29] LABS: Basophils Percent Auto 0.2 % (0-2); Hematocrit 36.2 % (37.0-47.0); Hemoglobin 11.9 g/dl (12.0-16.0); Imm Gran Abs Auto 0.02 X10*3/uL (0.00-0.03); Imm Gran Pct Auto 0.3 % (0.0-0.4); Lymphocytes Absolute Auto 0.6 X10*3/uL (1.2-4.9); Lymphocytes Percent Auto 9.4 % (20-40); Mean Corpuscular HGB Conc 32.9 g/dl (31.0-35.0); Mean Corpuscular Hemoglobin 29.6 pg (27.0-33.0); Mean Platelet Volume 10.8 fL (9.4-12.3); Monocytes Absolute Auto 0.5 X10*3/uL (0.1-1.2); Monocytes Percent Auto 6.8 % (2-11); Neutrophils Absolute Auto 5.5 x10*3/uL (2.0-8.3); Neutrophils Percent Auto 83.3 % (45-73); Platelet Count 305 X10*3/uL (160-400); Red Blood Count 4.02 X10*6/uL (4.20-5.50); Red Cell Distribution Width 12.1 % (11.0-16.0); White Blood Count 6.6 X10*3/uL (4.8-10.8)
[2022-11-16 07:02] LABS: Anion Gap 18 (12-20); Blood Urea Nitrogen 11 mg/dL (9-16); Calcium 8.9 mg/dL (8.4-10.2); Carbon Dioxide 17 mmol/L (22-29); Chloride 109 mmol/L (96-108); Creatinine Clr Calc Pharmacy 102.4; Estimated Glomerular Filt Rate > 60; Glucose Random 95 mg/dL (60-115); Potassium 4.7 mmol/L (3.3-5.1); Sodium 139 mmol/L (135-145)
[2022-11-16 07:09] VITALS: BP 106/58; PULSE 89; RESP 16; TEMP 37.1; O2SAT 96
[2022-11-16] MEDS: Famotidine/PF 20 MG/2 ML VIAL IVPUSH (07:14)
--- NOTE | 2022-11-16 07:41 | HO.POSTANES ---
Post Anesthesia Evaluation Post Anesthesia Evaluation Vital Signs: Vital Signs Temp Pulse Resp BP Pulse Ox O2 Del Method 11/16/22 07:09 98.7 F 89 16 106/58 L 96 Room Air 11/16/22 02:48 97.5 F 81 16 141/67 H 98 Room Air Anesthesia: General Endotracheal-GETA Mental Status: Awake Pain Control: Satisfactory Nausea/Vomiting: None Hydration: Adequate Anesthesia-Related Issues: No Anes. Related Issues
--- NOTE | 2022-11-16 09:10 | MHC.CM.PN ---
Addendum entered by Dayanara Carrillo 11/16/22 09:16: Patient is discharged to home self care. Patients is providing transportation. Original Note: FEMALE 37 S/P GASTRIC SLEEVE.She lives with and kids. She is independent with all functional mobility. Vaxxed for covid. Declined offer to document a HCP. DP home self care. will provide transportation.
== END 2022-11-16 09:29 | disposition home or self-care (01) | DRG 403 ==
LOC: HO.SSSA 14:09 → HO.S3 15:16
PROVIDERS: Nurse Practitioner; Physician Assistant Surgical; Admitting Provider Surgery; PCP Internal Medicine; Visit Provider Surgery
PROC: 0DB64Z3 Excision of Stomach, Percutaneous Endoscopic Approach, Vertical (ICD-10-PCS; CPT 43845; principal; 2022-11-15 12:50)
DX: E66.01 Morbid (severe) obesity due to excess calories (principal); K74.00 Hepatic fibrosis, unspecified; E03.9 Hypothyroidism, unspecified; E78.5 Hyperlipidemia, unspecified; M54.9 Dorsalgia, unspecified; Z68.35 Body mass index [BMI] 35.0-35.9, adult; Z20.822 Contact with and (suspected) exposure to COVID-19; Z87.891 Personal history of nicotine dependence; Z79.890 Hormone replacement therapy; Z79.899 Other long term (current) drug therapy
CPT/HCPCS: 36415; 80048; 81025; 85014; 85018; 85025; 86850; 86900; 86901; 87635; 88307; 88342; A4649; J0131; J0690; J1100; J1170; J2250; J2405; J2550; J2765; J3010

== ENCOUNTER → 2022-11-22 10:17 | Outpatient (BNVA) | payer OTHER, SELFPAY | PROVIDERS: PCP Internal Medicine; Visit Provider Physician Assistant Surgical ==

== ENCOUNTER → 2022-12-06 09:01 | Outpatient (BNVA) | payer OTHER, SELFPAY | PROVIDERS: PCP Internal Medicine; Visit Provider Dietitian, Registered | DX: E66.9 Obesity, unspecified (principal); Z68.32 Body mass index [BMI] 32.0-32.9, adult | CPT/HCPCS: 97803 ==

== ENCOUNTER → 2022-12-20 16:21 | Outpatient (BNVA) | payer OTHER, SELFPAY | PROVIDERS: PCP Internal Medicine; Visit Provider Dietitian, Registered | DX: E66.9 Obesity, unspecified (principal); Z68.31 Body mass index [BMI] 31.0-31.9, adult | CPT/HCPCS: 97803 ==

== ENCOUNTER → 2023-01-04 14:48 | Outpatient (BNVA) | payer OTHER, SELFPAY | PROVIDERS: PCP Internal Medicine; Visit Provider Anesthesiology | DX: G25.81 Restless legs syndrome (principal); Z98.84 Bariatric surgery status | CPT/HCPCS: 99202 ==

== ENCOUNTER → 2023-01-12 15:47 | Outpatient (BNVA) | payer OTHER, SELFPAY | PROVIDERS: PCP Internal Medicine; Visit Provider Dietitian, Registered | DX: E66.9 Obesity, unspecified (principal); Z68.30 Body mass index [BMI] 30.0-30.9, adult; Z71.3 Dietary counseling and surveillance | CPT/HCPCS: 97803 ==

== ENCOUNTER → 2023-02-07 08:47 | Outpatient (BNVA) | payer OTHER, SELFPAY | PROVIDERS: PCP Internal Medicine; Visit Provider Dietitian, Registered | DX: E66.3 Overweight (principal); R42 Dizziness and giddiness; L98.7 Excessive and redundant skin and subcutaneous tissue; K59.00 Constipation, unspecified; Z68.28 Body mass index [BMI] 28.0-28.9, adult; Z90.3 Acquired absence of stomach [part of]; Z98.84 Bariatric surgery status | CPT/HCPCS: 97803 ==

== ENCOUNTER 2023-02-08 13:10 | Outpatient (REF) | payer OTHER, SELFPAY ==
[2023-02-08 13:20] LABS: MANUAL DIFF FLAG NO
[2023-02-08 14:53] LABS: Basophils Percent Auto 0.5 % (0-2); Eosinophils Absolute Auto 0.1 X10*3/uL (0.0-0.4); Eosinophils Percent Auto 1.2 % (0-4); Hematocrit 36.4 % (37.0-47.0); Hemoglobin 11.7 g/dl (12.0-16.0); Imm Gran Abs Auto 0.02 X10*3/uL (0.00-0.03); Imm Gran Pct Auto 0.3 % (0.0-0.4); Lymphocytes Absolute Auto 1.8 X10*3/uL (1.2-4.9); Lymphocytes Percent Auto 27.1 % (20-40); Mean Corpuscular HGB Conc 32.1 g/dl (31.0-35.0); Mean Corpuscular Hemoglobin 29.2 pg (27.0-33.0); Mean Corpuscular Volume 90.8 fL (80.0-98.0); Monocytes Absolute Auto 0.5 X10*3/uL (0.1-1.2); Monocytes Percent Auto 8.1 % (2-11); Neutrophils Absolute Auto 4.2 x10*3/uL (2.0-8.3); Neutrophils Percent Auto 62.8 % (45-73); Platelet Count 301 X10*3/uL (160-400); Red Blood Count 4.01 X10*6/uL (4.20-5.50); Red Cell Distribution Width 13.2 % (11.0-16.0); White Blood Count 6.6 X10*3/uL (4.8-10.8)
[2023-02-08 15:51] LABS: TSH reflex Free T4 1.61 uIU/mL (0.32-4.0)
== END 2023-02-08 13:11 | disposition home or self-care (01) ==
LOC: HO.LAB 13:10
PROVIDERS: Visit Provider Physician Assistant
DX: Z98.890 Other specified postprocedural states (principal); Z90.3 Acquired absence of stomach [part of]
CPT/HCPCS: 36415; 84443; 85025

== ENCOUNTER → 2023-02-22 13:32 | Outpatient (BNVA) | payer OTHER, SELFPAY | PROVIDERS: PCP Internal Medicine; Visit Provider Dietitian, Registered | DX: E66.3 Overweight (principal); Z68.27 Body mass index [BMI] 27.0-27.9, adult | CPT/HCPCS: 97803 ==

== ENCOUNTER 2023-05-24 14:05 | Outpatient (AMB) | payer OTHER, SELFPAY ==
--- NOTE | 2023-05-24 14:27 | MHC.OFFVIS ---
Intake Vital Signs 05/24/23 14:30 Weight 166 lb BP 110/62 Blood Pressure Location Rt brachial Position Sitting Pulse Oximetry (%) 98 Oxygen Delivery Method Room Air Intake Visit Reasons: INP-Restless leg syndrome-lvm Intake Note: Pt is here to establish care for RLS Allergies No Known Allergies Allergy (Verified 05/24/23 14:32) Medication List - Last Reconciled 05/24/23 by Sahara Trejo MD iron,carbonyl-vitamin C 65 mg iron- 125 mg (Vitron-C) 1 tab PO BEDTIME levothyroxine 50 mcg PO DAILY ropinirole 1-4 tabs a sneeded for breakthrough pain orally daily; ropinirole ER 2 mg PO BEDTIME HPI HPI Comments History of Present Illness Details 38y/o female comes for evaluation and management of possible restless legs syndrome she reports discomfort at rest and worse at night.she describes the sensation as an annoying tingling sensation that improves with movement.she has trouble falling asleep because of her symptoms and she also has leg movements in sleep. The symptoms usually starts after 8 pm , it is rare during the day. But it can happen during long car ride. she has had these symptoms for several years but feels its worse now. she has frequent arousals at night and has excessive daytime fatigue.she was given 100mg gabapentin but it did not help her. [facility] Medical History (Updated 05/24/23 @ 14:58 by Sahara Trejo MD) Insomnia History of COVID-19 Back pain Hyperlipidemia Hypothyroidism Morbid obesity Surgical History H/O gastric sleeve No pertinent past surgical history Family History Mother Farnham's disease Father Diabetes Hypertension High cholesterol Sister No problems noted. Sister No problems noted. Sister No problems noted. Son No problems noted. Son No problems noted. Social History Household Members: Family Housing: Apartment Are you a primary rn intensive care unit to a significant other at home: No Do you presently have visiting nurse or other home services: No Alcohol intake: never Patient Tobacco Use Status: Former Tobacco user Quit Date: age 22 Tobacco use type: Cigarette Years Smoked: 8 service: No Current occupational status: employed Review of Systems Const Reports daytime sleepiness, Reports difficulty sleeping and Reports headache(s) Eyes Reports blurry vision ENT Reports headache(s) Musc Reports back pain Neuro Reports headache(s) Physical Exam Vital Signs: Last Vital Signs BP 110/62 05/24/23 14:30 Pulse Ox 98 05/24/23 14:30 Oxygen Delivery Method Room Air 05/24/23 14:30 Const General: cooperative, healthy appearing and comfortable Nutritional Appearance: average body habitus Orientation/consciousness: patient oriented x3 Eyes Pupils: Equal, round and reactive pupils present Neuro General: patient oriented x3, gait normal, tone normal, moves all extremities and no focal motor deficits Cranial nerves: Yes Facial sensation intact/muscles of mastication intact, Yes Equal, round and reactive pupils present, Yes Bilaterally intact EOM present, Yes Nystagmus not present, Yes Normal facial strength present, Yes Midline tongue present and Yes Symmetric palate elevation present Cognition (Neuro): normal cognition Gait exam (Neuro): Normal gait present Motor exam (neuro): 5/5 motor strength present throughout and Normal motor muscle tone present throughout Deep tendon reflexes (DTR's): Right triceps reflex intensity grade: 1+, Left triceps reflex intensity grade: 1+, Rt Biceps (C5, C6): 1+, Left biceps reflex intensity grade: 1+, Right brachioradialis reflex intensity grade: 2+, Left brachioradialis reflex intensity grade: 2+, Right patellar reflex intensity grade: 2+ and Left patellar reflex intensity grade: 2+ Coordination: [id number] test normal Assessment & Plan Assessment & Plan (1) Restless leg syndrome: Code(s): G25.81 - Restless legs syndrome (2) Insomnia: Comment: Likely related to restless legs syndrome and possible PLMS Code(s): G47.00 - Insomnia, unspecified Plan Reviewed labs- normal Ferritin TSH, CBC CMP, Mild anemia I will trial her on ropinirole XR 2mg qhs and ropinirole 0.25 mg as needed for breakthrough symptoms will consider sleep study Medications: New ropinirole ER 2 mg PO BEDTIME 30 tabs 6RF ropinirole 1-4 tabs a sneeded for breakthrough pain orally daily; 120 tabs 6RF Refilled iron,carbonyl-vitamin C 65 mg iron- 125 mg (Vitron-C) 1 tab PO BEDTIME 30 tabs 5RF Coding Level of Care Code New Pt Level 4 (83572) Diagnoses Restless leg syndrome G25.81 Insomnia G47.00
[2023-05-24 14:30] VITALS: BP 110/62; O2SAT 98
== END 2023-05-24 15:00 | disposition home or self-care (01) ==
PROVIDERS: Visit Provider Psychiatry & Neurology Neurology
DX: G25.81 Restless legs syndrome (principal); G47.00 Insomnia, unspecified
CPT/HCPCS: 99204

== ENCOUNTER → 2023-05-24 14:05 | Outpatient (BNVA) | payer OTHER, SELFPAY | PROVIDERS: Visit Provider Psychiatry & Neurology Neurology ==

== ENCOUNTER 2024-11-25 12:55 | Outpatient (AMB) | payer OTHER, SELFPAY ==
--- NOTE | 2024-11-25 12:57 | MHC.OFFVISWM ---
VS Expanded 11/25/24 13:05 BP 111/58 L Blood Pressure Location Rt brachial Blood Pressure Position Sitting Pulse 5 L Pulse Source Pulse Oximeter Temp 97.2 F Temperature Source Temporal Artery Scan Pulse Oximetry 97 Oxygen Delivery Method Room Air Height 5 ft 5.5 in Weight 204 lb BMI 33.4 Body Fat % 36.0 Body Fat Mass 73.4 Fat Free Mass 130.6 Visceral Fat Rating 8.0 Body Water % 45.7 Body Water Mass 93.2 Muscle Mass/Score 123.8 Basal Metabolic Rate/Score 1,784 Intake Visit Reasons: (OV) PO LSG 11/15/22 GLP-1 Button Facing Machine Operator Required: No Allergies No Known Allergies Allergy (Verified 11/25/24 13:07) Medication List - Last Reconciled 11/25/24 by VLADISLAV Majano levothyroxine 50 mcg PO DAILY ropinirole 1-4 tabs a sneeded for breakthrough pain orally daily; ropinirole ER 2 mg PO BEDTIME HPI Comments Details: Patient is a pleasant 39-year-old female who returns to the office today in follow-up. She is a proximally 2 years post sleeve gastrectomy performed on 11/15/2022. Last seen in the office in January 2023. Weight at that time was 168 lb. Weight today is 204 lb. With a BMI of 33.4. preop weight was 216 lb.She states that she did not follow-up in the office for about a year and a half as work got away from her and scheduling issues. She is now excited and engaged to returned to the program. Not taking mvi Meal plan: shake Premier protein rtd x 2 protein, rice, pasta, veg protein bar pure protein or quest Exercise plan: tore a tendon in her left ankle last summer and is going to need surgery. Any post op complications: none JERRY: never DM: never HTN: [never Hyperlipidemia: resolved GERD:?0-5 scale ??0 = no symptoms ??1 = symptoms noticeable but not bothersome 2 =symptoms bothersome but not daily ? 3 = symptoms bothersome and daily 4 = symptoms affect daily activities 5 = symptoms are incapacitating, unable to do daily activities ? How bad is the heartburn: 0 ? Heartburn while lying down: 0 ? Heartburn when standing up: 0 ? Heartburn after meals: 0 ? Does heartburn change your diet: 0 ? Does heartburn wake you up from sleep: 0 ? Do you have difficulty swallowin ? Do you have pain with swallowin ? If you take medicine for your reflux, does this affect your daily life: 0 Satisfaction with present condition - satisfied or not satisfied: dissatisfied [facility] Medical History Insomnia History of COVID-19 Back pain Hyperlipidemia Hypothyroidism Morbid obesity Surgical History H/O gastric sleeve No pertinent past surgical history Family History Mother Carmel's disease Father Diabetes Hypertension High cholesterol Sister No problems noted. Sister No problems noted. Sister No problems noted. Son No problems noted. Son No problems noted. Social History Household Members: Family Housing: Apartment Are you a primary career development manager to a significant other at home: No Do you presently have visiting nurse or other home services: No Alcohol intake: never Patient Tobacco Use Status: Former Tobacco user Tobacco use type: Cigarette Years Smoked: 8 service: No Current occupational status: employed Physical Exam Const General: cooperative and no acute distress Orientation/consciousness: patient oriented x3 Resp Effort & Inspection: normal respiratory effort Auscultation: clear to auscultation bilaterally Cardio Rate: regular rate Rhythm: regular rhythm GI Inspection: Yes normal to inspection and Yes incision (well healed) Palpation (GI): Soft to palpation and no masses Neuro General: patient oriented x3 Assessment & Plan Assessment & Plan (1) S/P laparoscopic sleeve gastrectomy: Code(s): Z98.84 - Bariatric surgery status Category: Surgical Plan: we will order postop yearly labs. Discussed the importance of following the meal plan and exercise plan Her exercise is somewhat limited due to left ankle injury and planned ankle surgery due to tendon disruption however she will try to do as much as she can. Ultimate goal will be burning 300 calories per day. She will be given a new meal plan: based upon waking at 6 am and bed at 10 pm 7-9 am Half ready to drink Premier protein shake mixed with 4 oz of unsweetened almond milk 11-1 other 1/2 of shake 4 pm meal with 7 forks of protein and 7 forks of veggies [phone] Quest or pure protein bar Patient given my cell phone number so that she may send her weight is weekly and text with any questions or concerns. Return to clinic 1 month Orders: Orders Insulin Today E03.9 - Hypothyroidism, unspecified, E78.5 - Hyperlipidemia, unspecified, Z98.84 - Bariatric surgery status Hemoglobin A1c Today E03.9 - Hypothyroidism, unspecified, E78.5 - Hyperlipidemia, unspecified, Z98.84 - Bariatric surgery status Comprehensive Met. Panel Today E03.9 - Hypothyroidism, unspecified, E78.5 - Hyperlipidemia, unspecified, Z98.84 - Bariatric surgery status TSH reflex Free T4 Today E03.9 - Hypothyroidism, unspecified, E78.5 - Hyperlipidemia, unspecified, Z98.84 - Bariatric surgery status Complete Blood Count Auto Diff Today E03.9 - Hypothyroidism, unspecified, E78.5 - Hyperlipidemia, unspecified, Z98.84 - Bariatric surgery status Lipid Panel Today E03.9 - Hypothyroidism, unspecified, E78.5 - Hyperlipidemia, unspecified, Z98.84 - Bariatric surgery status IRON PROFILE Today E03.9 - Hypothyroidism, unspecified, E78.5 - Hyperlipidemia, unspecified, Z98.84 - Bariatric surgery status Vitamin B12 and Folate Today E03.9 - Hypothyroidism, unspecified, E78.5 - Hyperlipidemia, unspecified, Z98.84 - Bariatric surgery status Zinc Today E03.9 - Hypothyroidism, unspecified, E78.5 - Hyperlipidemia, unspecified, Z98.84 - Bariatric surgery status C Reactive Protein Today E03.9 - Hypothyroidism, unspecified, E78.5 - Hyperlipidemia, unspecified, Z98.84 - Bariatric surgery status Vitamin B1 Today E03.9 - Hypothyroidism, unspecified, E78.5 - Hyperlipidemia, unspecified, Z98.84 - Bariatric surgery status Vitamin A Today E03.9 - Hypothyroidism, unspecified, E78.5 - Hyperlipidemia, unspecified, Z98.84 - Bariatric surgery status Ferritin Today E03.9 - Hypothyroidism, unspecified, E78.5 - Hyperlipidemia, unspecified, Z98.84 - Bariatric surgery status Vitamin D 25-OH Total Today E03.9 - Hypothyroidism, unspecified, E78.5 - Hyperlipidemia, unspecified, Z98.84 - Bariatric surgery status
[2024-11-25 13:05] VITALS: BP 111/58; PULSE 5; TEMP 36.2; O2SAT 97; BMI 33.4
--- OUTSIDE RECORDS SUMMARY | 2024-11-25 14:30 | XMS_ITS | Clinical Summary ---
Author Organization 175 [facility] Address [address] [place] [address] Phone Care Team Providers Care Medical Geneticist Name Role Phone Susie Thompson MD Primary Care Prov ider Allergies Active Allergy Reactions Criticality Noted Date Comments House Dust 09/25/2018 Tree And Shrub Pollen 09/25/2018 TREES Medications diclofenac (VOLTAREN) 1 % topical gel Apply 4 g topically 2 times daily. 4 Active rOPINIRole XL (REQUIP XL) 2 mg 24 hr tablet TAKE 1 TABLET BY MOUTH AT BEDTIME 4 Active UNABLE TO FIND IUD'S IU by Intrauterine route Active levothyroxine (SYNTHROID, LEVOTHROID) 50 mcg tablet Take 1 tablet (50 mcg total) by mouth 1 (one) time each day. 90 tablet 3 5 Active Active Problems Problem Noted Date Diagnosed Date Tear of peroneal tendon of left foot 11/12/2024 Generalized pruritus 11/12/2018 Hypothyroidism 11/12/2018 Dyslipidemia 12/31/2015 Vitamin D deficiency 12/31/2015 Obesity 02/03/2010 Encounters Date Type Department Care Team Description 11/12/2024 2:15 PM EDT Office Visit Orthopedic Surgery [facility] 250 175 [facility] [address] [place] [address] Jeremiah Lazo, DPM Tear of peroneal tendon of left foot (Primary Dx) 10/16/2024 11:16 AM EST - 10/16/2024 11:59 PM EST Hospital Encounter [facility] MRI [address] [place] [address] High ankle sprain, left, sequela Discharge Disposition: Home or Self Care 10/07/2024 2:30 PM EST Office Visit Orthopedic Surgery - [place] 250 175 [facility] [address] [place] [address] Jeremiah Lazo, DPM High ankle sprain, left, sequela (Primary Dx); Left ankle pain; Tendinitis of left ankle from Last 3 Months Immunizations Name Administration Dates Next Due H1N1 Inj Preservative Free 07/14/2009 Hepatitis B ([place] , Recombivax HB-Adult) 19yo and older 05/12/2010,12/09/2009,11/11/2009 Influenza Quadravalent, MDCK , 0.5ml, preservative free (Flucelvax) 6mo and older 07/03/2020 Influenza trivalent, 0.5mL, preservative free (Fluarix; FluLaval; Fluzone) ages 6mo and older (Afluria) 3 years and older 06/05/2012,07/08/2010 MMR, measles mumps and rubel la Live (Priorix; M-M-R II) 12mo and older 06/12/2012 PPD Test 11/17/2010 Tdap Tetanus diptheria acell ular pertussis (Boostrix; Adacel) 7yo and older 05/31/2024,02/09/2014,07/14/2009 Surgical History Surgery Date Site/Laterality Comments OTHER SURGICAL HISTORY 11/15/2022 PROCEDURE: [place] GASTRIC RSTCV W/PRTL GASTRECTOMY 50-100 CM; COMMENT: Gastric sleeve, [facility] Medical History Medical History Date Comments Vitamin D deficiency DX:Vitamin D deficiency Obesity DX:Obesity Dyslipidemia DX:Dyslipidemia Family History Medical History Relation Name Comments Diabetes Father Hyperlipidemia Father Hypertension Father Alcohol abuse Maternal Grandfather Other: Huntingtons Disease. Maternal Grandmother Other: Hodge's Disease Mother Diabetes Paternal Grandmother Thyroid disease Sister 1 Hyperlipidemia Sister 2 No Known Problems Sister 3 No Known Problems Son 1 No Known Problems Son 2 Breast cancer Neg Hx Colon cancer Neg Hx Ovarian cancer Neg Hx Uterine cancer Neg Hx Relation Name Status Comments Father Alive dm, htn, Maternal Grandfather Maternal Grandmother Mother Paternal Grandfather Paternal Grandmother Sister 1 Alive Sister 2 Alive Sister 3 Alive Son 1 Alive Son 2 Alive Social History Tobacco Use Types Packs/Day Years Used Date Smoking Tobacco: Former Smokeless Tobacco: Never Tobacco Cessation:Counseling Given: Not Answered Alcohol Use Standard Drinks/Week Comments Yes 0 (1 standard drink = 0.6 oz pur e alcohol) Comments Unknown Sex and Gender Information Value Date Recorded Sex Assigned at Not on file Legal Sex Female 9:10 AM EST Gender Identity Not on file Sexual Orientation Not on file Obstetrics History Last Filed Vital Signs Vital Sign Reading Time Taken Comments Blood Pressure 84/60 05/31/2024 7:40 AM EDT Pulse 72 05/31/2024 7:40 AM EDT Temperature - - Respiratory Rate - - Oxygen Saturation - - Inhaled Oxygen Concentration - - Weight 88.9 kg (196 lb) 11/12/2024 2:13 PM EDT Height 167.6 cm (5' 5.98 ) 11/12/2024 2:13 PM ED T Body Mass Index 31.65 11/12/2024 2:13 PM EDT Plan of Treatment Upcoming Encounters Date Type Department Care Team (Late st Contact Info) Description 12/02/2024 2:30 PM EDT Office Visit Adult Medicine [address] [phone] Susie Thompson MD [address] [place] [phone] 12/18/2024 10:15 AM EDT Office Visit Orthopedic Surgery - [place] [address] [phone] Jeremiah Lazo DPDeb [address] [address] Scheduled Procedures Name Priority Associated Diagnoses Date/Ti me REPAIR TENDON LEG Tear of peroneal tendon of left foot Health Maintenance Due Date Last Done Comments Social Influencers of Health Screening 08/06/2022 COVID-19 Vaccine ( season) 2024 07/16/2021, 06/18/2021 Influenza Vaccine (#1) 2024 , 06/05/2012, 07/08/2010, Additional history exists Cervical Cancer Screening: HPV 09/10/2024 09/10/2019 Depression Screening 12/26/2024 12/27/2023 Breast Cancer Screening 06/21/2026 06/21/2024, 06/21 Cholesterol Screening (Lipid Panel) 06/04/2029 06/04/2024, 06/04/2024 DTaP,Tdap,and Td Vaccines (4 - Td or Tdap) 05/31/2034 05/31/2024, 02/09/2014, 07/14/2009 Hepatitis B Vaccines Completed 05/12/2010, 12/09/2009, 11/11/2009 MMR Vaccines Aged Out 06/12/2012 No longer eligi ble based on patient's age to complete this topic HIV Screening Completed 11/29/2017 Hepatitis C Screening Completed 11/29/2017 HIB Vaccines Aged Out No longer eligi ble based on patient's age to complete this topic HPV Vaccines Aged Out No longer eligi ble based on patient's age to complete this topic Hepatitis A Vaccines Aged Out No long er eligible based on patient's age to complete this topic IPV Vaccines Aged Out No longer eligi ble based on patient's age to complete this topic Meningococcal ACWY Vaccine Aged Out N o longer eligible based on patient's age to complete this topic Meningococcal B Vacine Aged Out No lo nger eligible based on patient's age to complete this topic Pneumococcal Vaccine: Pediatrics (0 to 5 Years) and At-Risk Patients (6 to 64 Years) Aged Out No longer eligible based on patient's age to complete this topic RSV Immunization Patients Under 20 months Aged Out No longer eligible based on patient's age to complete this topic Varicella Vaccines Aged Out No longer eligible based on patient's age to complete this topic Procedures Procedure Name Priority Date/Time Associated Diagnosis Comments MR ANKLE WO CONTRAST LEFT Routine 10/16/2024 11:48 AM EST High ankle sprain, left, sequela XR ANKLE 3+ VIEWS LEFT Routine 10/07/2024 2:41 PM EST Left ankle pain SCREENING MAMMOGRAPHY BI 2-VIEW BREAST INC CAD Routine 06/21/2024 2:39 PM EDT Encounter for immunization Encounter for general adult medical examination without abnormal findings LIPID PANEL Routine 06/04/2024 DEPRESSION SCREENING Routine 12/27/2023 HPV Routine 09/10/2019 HEPATITIS C SCREENING Routine 11/29/2017 HIV SCREENING Routine 11/29/2017 from Last 3 Months or Most Recently Relevant to Health Maintenance Results * MR Ankle wo Contrast Left (10/16/2024 11:48 AM EST) Anatomical Region Laterality Modality Lower Extremities, Ankle Left Magneti c Resonance 10/17/2024 3:43 PM EST Impressions 10/17/2024 3:47 PM EST Longitudinal split tear of the peroneus brevis tendon. -------- FINAL REPORT -------- Dictated By: Judd Coleman Dictated Date: 10/17/2024 15:43 ET Assigned Physician: Judd Coleman Reviewed and Electronically Signed By: Judd Coleman Signed Date: 10/17/2024 15:47 ET Workstation ID: [id number] Transcribed By: Self Edit Transcribed Date: 10/17/2024 15:43 ET Narrative 10/17/2024 3:47 PM EST Procedure: MRI of the left ankle without intravenous contrast. HISTORY: Inversion injury over 6 months ago with chronic ankle pain. COMPARISON: None. TECHNIQUE: Multiplanar multisequence MRI of the left ankle without intravenous contrast administration. FINDINGS: Tendons: The Achilles tendon has a convex anterior margin but is normal in signal. ??There is trace fluid in the retrocalcaneal bursa. ??Fluid in the peroneal tendon sheaths with a longitudinal split tear of the peroneus brevis. ??Trace fluid in the flexor hallucis, flexor digitorum, and posterior tibial tendon sheaths, but the tendons appear intact. ??Normal appearance of the extensor tendons. ?? Ligaments: The anterior and posterior tibiofibular and talofibular ligaments are normal. ??Calcaneofibular ligament is normal. ??Deltoid complex and spring ligaments are normal. Plantar fascia: Normal. Bones: No marrow signal abnormality. ??No significant degenerative change. Soft tissues: No mass or fluid collection. Procedure Note Judd Coleman MD - 10/17/2024 Procedure: MRI of the left ankle without intravenous contrast. HISTORY: Inversion injury over 6 months ago with chronic ankle pain. COMPARISON: None. TECHNIQUE: Multiplanar multisequence MRI of the left ankle withoutintravenous contrast administration. FINDINGS: Tendons: The Achilles tendon has a convex anterior margin but is normal insignal. There is trace fluid in the retrocalcaneal bursa. Fluid in theperoneal tendon sheaths with a longitudinal split tear of the peroneusbrevis. Trace fluid in the flexor hallucis, flexor digitorum, andposterior tibial tendon sheaths, but the tendons appear intact. Normalappearance of the extensor tendons. Ligaments: The anterior and posterior tibiofibular and talofibularligaments are normal. Calcaneofibular ligament is normal. Deltoidcomplex and spring ligaments are normal. Plantar fascia: Normal. Bones: No marrow signal abnormality. No significant degenerativechange. Soft tissues: No mass or fluid collection. IMPRESSION: Longitudinal split tear of the peroneus brevis tendon. -------- FINAL REPORT -------- Dictated By: Judd Coleman Dictated Date: 10/17/2024 15:43 ET Assigned Physician: Judd Coleman Reviewed and Electronically Signed By: Judd Coleman Signed Date: 10/17/2024 15:47 ET Workstation ID: [id number] Transcribed By: Self Edit Transcribed Date: 10/17/2024 15:43 ET us Jeremiah Lazo DPDeb IMG MRI PROCEDURES Final Result * XR Ankle 3+ Views Left (10/07/2024 2:41 PM EST) Anatomical Region Laterality Modality Lower Extremities, Ankle Left Compute d Radiography Narrative 10/07/2024 5:46 PM EST Left ankle 3 views No acute findings normal alignment without fracture dislocation or malalignment us Jeremiah Lazo DPM IMG XR PROCEDURES Final R esult * SCREENING MAMMOGRAPHY BI 2-VIEW BREAST INC CAD (06/21/2024 2:39 PM EDT) Anatomical Region Laterality Modality Radiographic Michelle ging 05/31/2024 8:03 AM EDT Narrative 06/21/2024 7:10 PM EDT This is a summary report. The complete report is available in the patient's medical record. If you cannot access the medical record, please contact the sending organization for a detailed fax or copy. Exam: Screening mammogram Findings: Digital bilateral full-field screening mammography is performed with tomosynthesis and interpreted with the aid of computer-aided detection. ??This is a baseline exam. Breast parenchyma is composed of scattered fibroglandular densities. ??No suspicious mass, architectural distortion, or suspicious calcifications. Impression: No mammographic evidence of malignancy. BI-RADS 1 - negative [address] [address] Procedure Note Diana Gonzalez MD - 06/29/2024 This is a summary report. The complete report is available in thepatient's medical record. If you cannot access the medical record, pleasecontact the sending organization for a detailed fax or copy. Exam: Screening mammogram Findings: Digital bilateral full-field screening mammography is performedwith tomosynthesis and interpreted with the aid of computer-aideddetection. This is a baseline exam. Breast parenchyma is composed of scattered fibroglandular densities. Nosuspicious mass, architectural distortion, or suspicious calcifications. Impression: No mammographic evidence of malignancy. BI-RADS 1 - negative [address] [address] us Susie Thompson MD IMG XR PROCEDURES Final Result * (ABNORMAL) Lipid panel (06/04/2024) [facility] LDL/HDL Ratio 4 0 - 4 Triglycerides 90 0 - 150 mg/dL Cholesterol 224(A) 0 - 200 mg/dL HDL 64 >=40 mg/dL LDL Cholesterol 142(A) 0 - 100 mg/dL Blood Venous blood specimen / Unknown Result [facility] Provider LAB BLOOD ORDERABLES Darlin l Result * Depression Screening (12/27/2023) [facility] Depression Screening Abstracted [facility] Provider HEALTH MAINTENANCE Final Result * Cervical Cancer Screening: HPV (09/10/2019) [facility] Cervical Cancer Screening: HPV Negative, Abstracted [facility] Provider HEALTH MAINTENANCE Final Result * HIV Screening (11/29/2017) [facility] HIV Screening Abstracted [facility] Provider HEALTH MAINTENANCE Final Result * Hepatitis C Screening (11/29/2017) [facility] Hepatitis C Screening Abstracted [facility] Provider HEALTH MAINTENANCE Final Result from Last 3 Months or Most Recently Relevant to Health Maintenance Insurance [facility] [employer] Care Teams Medical Geneticist Relationship Specialty Start Date End Date Susie Thompson MD [address] [place] [id number] PCP - General Internal Medicine 05/27/22
== END 2024-11-25 13:30 | disposition home or self-care (01) ==
LOC: HO.HBS 12:55
PROVIDERS: PCP Internal Medicine; Visit Provider Physician Assistant Surgical
DX: E66.811 Obesity, class 1 (principal); Z68.33 Body mass index [BMI] 33.0-33.9, adult; Z90.3 Acquired absence of stomach [part of]; Z98.84 Bariatric surgery status
CPT/HCPCS: 99214; G2211

== ENCOUNTER → 2024-11-25 12:55 | Outpatient (BNVA) | payer OTHER, SELFPAY | PROVIDERS: PCP Internal Medicine; Visit Provider Physician Assistant Surgical | DX: E66.9 Obesity, unspecified (principal); E03.9 Hypothyroidism, unspecified; E78.5 Hyperlipidemia, unspecified; Z98.84 Bariatric surgery status; Z68.33 Body mass index [BMI] 33.0-33.9, adult | CPT/HCPCS: 99212 ==

== ENCOUNTER 2024-11-26 07:01 | Outpatient (REF) | payer OTHER, SELFPAY ==
[2024-11-26 07:16] LABS: MANUAL DIFF FLAG NO
[2024-11-26 07:49] LABS: Basophils Percent Auto 0.5 % (0-2); Eosinophils Absolute Auto 0.2 X10*3/uL (0.0-0.4); Eosinophils Percent Auto 2.9 % (0-4); Hematocrit 37.6 % (37.0-47.0); Imm Gran Abs Auto 0.02 X10*3/uL (0.00-0.03); Imm Gran Pct Auto 0.4 % (0.0-0.4); Lymphocytes Absolute Auto 1.5 X10*3/uL (1.2-4.9); Lymphocytes Percent Auto 26.1 % (20-40); Mean Corpuscular HGB Conc 34.6 g/dl (31.0-35.0); Mean Corpuscular Volume 86.8 fL (80.0-98.0); Mean Platelet Volume 9.6 fL (9.4-12.3); Monocytes Absolute Auto 0.4 X10*3/uL (0.1-1.2); Monocytes Percent Auto 7.7 % (2-11); Neutrophils Absolute Auto 3.5 x10*3/uL (2.0-8.3); Neutrophils Percent Auto 62.4 % (45-73); Platelet Count 303 X10*3/uL (160-400); Red Blood Count 4.33 X10*6/uL (4.20-5.50); Red Cell Distribution Width 11.7 % (11.0-16.0); White Blood Count 5.6 X10*3/uL (4.8-10.8)
[2024-11-26 08:07] LABS: Estimated Average Glucose 103 mg/dL; Hemoglobin A1C 112.1508 umol/L; Hemoglobin A1c % 5.2 % (<6.0); Total Hemoglobin (HGBA1C) 3416.4817 umol/L
[2024-11-26 09:00] LABS: Alanine Aminotransferase 13 U/L (0-31); Albumin Level 4.3 g/dL (3.5-5.0); Alkaline Phosphatase 55 U/L (39-117); Anion Gap 11 (12-20); Aspartate Amino Transferase 19 U/L (5-31); Bilirubin Total 0.9 mg/dL (0.0-1.0); Blood Urea Nitrogen 22 mg/dL (9-16); C Reactive Protein 0.15 mg/dL (< or = 0.50); Calcium 9.4 mg/dL (8.4-10.2); Carbon Dioxide 24 mmol/L (22-29); Chloride 109 mmol/L (96-108); Cholesterol 201 mg/dL (<200); Estimated Glomerular Filt Rate > 60; Glucose Random 78 mg/dL (60-115); HDL Cholesterol 49 mg/dL (>40); Iron 147 mcg/dL (30-160); LDL Cholesterol Calculated 134 mg/dL (<100); Percent Iron Saturation 52 % (15-50); Potassium 3.9 mmol/L (3.3-5.1); Sodium 140 mmol/L (135-145); Total Iron Binding Capacity 284 mcg/dL (228-428); Total Protein 7.2 g/dL (6.5-8.0); Triglycerides 94 mg/dL (<150); Unsaturated Iron Binding 137 ug/dL
[2024-11-26 09:11] LABS: Folate 12.7 ng/mL (> or = 4.0); Vitamin B12 381 pg/mL (200-900)
[2024-11-26 09:13] LABS: Ferritin 134 ng/mL (10-250); TSH reflex Free T4 2.06 uIU/mL (0.32-4.0); Vitamin D 25-OH Total 31.1 ng/mL (>30)
[2024-11-26 11:31] LABS: Insulin 6 uU/mL (2-29)
[2024-11-29 22:04] LABS: Zinc 71 mcg/dL (60-130)
[2024-11-30 01:38] LABS: Vitamin A 63 mcg/dL (38-98)
[2024-12-04 15:47] LABS: Vitamin B1 17 nmol/L (8-30)
== END 2024-11-26 07:02 | disposition home or self-care (01) ==
LOC: HO.LAB 07:01
PROVIDERS: PCP Internal Medicine; Visit Provider Physician Assistant Surgical
DX: Z98.84 Bariatric surgery status (principal); E78.5 Hyperlipidemia, unspecified; E03.9 Hypothyroidism, unspecified
CPT/HCPCS: 36415; 80053; 80061; 82306; 82607; 82728; 82746; 83036; 83525; 83540; 84425; 84443; 84590; 84630; 85025; 86140

== ENCOUNTER 2024-12-26 14:06 | Outpatient (AMB) | payer OTHER, SELFPAY ==
--- NOTE | 2024-12-26 14:04 | MHC.OFFVISWM ---
VS Expanded 12/26/24 14:05 Height 5 ft 5.5 in Weight 195 lb BMI 32.0 Intake Visit Reasons: PO LSG 11/15/22 GLP-1 Phosphoric Acid Supervisor Required: No Allergies No Known Allergies Allergy (Verified 11/25/24 13:07) Medication List - Last Reconciled 12/26/24 by VLADISLAV Majano levothyroxine 50 mcg PO DAILY ropinirole 1-4 tabs a sneeded for breakthrough pain orally daily; ropinirole ER 2 mg PO BEDTIME HPI Comments Details: 39-year-old female returns to the office today in follow-up. She is a proximally 2 years 1 month post sleeve gastrectomy. She was last seen in the office 11/25/2024 with a weight of 204 lb. Weight today is 195 pounds with a BMI of 32. She has lost 9 pounds since returning to the [facility] program. Surgery planned for 01/24/25 for L ankle. based upon waking at 6 am and bed at 10 pm 7-9 am 6 oz ready to drink Premier protein shake mixed with 4 oz of unsweetened almond milk 11-1 other 1/2 of shake 4 pm meal with 7 forks of protein and 7 forks of veggies 730-930 Quest or pure protein bar Exercise plan: walking outside 4 days per week as her ankle pain allows, 3.25 mi. 35 min on stationary bike when she can't walk. [facility] Medical History Insomnia History of COVID-19 Back pain Hyperlipidemia Hypothyroidism Morbid obesity Surgical History H/O gastric sleeve No pertinent past surgical history Family History Mother Greeley's disease Father Diabetes Hypertension High cholesterol Sister No problems noted. Sister No problems noted. Sister No problems noted. Son No problems noted. Son No problems noted. Social History Household Members: Family Housing: Apartment Are you a primary veterinarian laboratory animal care to a significant other at home: No Do you presently have visiting nurse or other home services: No Alcohol intake: never Patient Tobacco Use Status: Former Tobacco user Tobacco use type: Cigarette Years Smoked: 8 service: No Current occupational status: employed Telehealth Telehealth Telehealth Platform: Telephone Location of provider rendering services: practice address Location of patient: address on file Patient Identification confirmed using: Name, : Yes Telehealth method: voice only Patient verbally consented to treatment: Yes Patient verbally consented to billing insurance company: Yes Patient informed of any privacy concerns related to visit: Yes Minutes spent on Phone/Video with Pt.: 15 Assessment & Plan Assessment & Plan (1) S/P laparoscopic sleeve gastrectomy: Code(s): Z98.84 - Bariatric surgery status Category: Surgical Plan: Overall, patient is doing well. She has lost 9 lb since initiating the meal plan as given to her by me. We will adjust it slightly to include: 7-9 am 6 oz ready to drink Premier protein shake mixed with 4 oz of unsweetened almond milk 11-1 other 1/2 of shake 4 pm meal with 7 forks of protein and 7 forks of veggies 730-930 1/2 Quest or pure protein bar Encouraged to increase exercise as she is able. She will discuss with her orthopedic surgeon whether she will be able to walk in the pool after surgery which is scheduled for 01/24/2025. This is left ankle surgery. Per her report she is going to be recovering for anywhere 2-3 months. We will arrange for follow-up in mid January.
[2024-12-26 14:05] VITALS: BMI 32.0
--- OUTSIDE RECORDS SUMMARY | 2024-12-26 16:17 | XMS_ITS | Clinical Summary ---
Author Organization 175 [facility] Address [address] [place] [address] Phone Care Team Providers Care Sweatband Perforator Name Role Phone Susie Thompson MD Primary [...] Encounters Date Type Department Care Team Description 12/24/2024 Telephone Orthopedic Surgery [facility] [address] [phone] Jeremiah Lazo, DPM Surgery [facility] Dr Lazo 12/18/2024 10:15 AM EDT Office Visit Orthopedic Surgery [facility] [address] [phone] Jeremiah Lazo DPM Tear of peroneal tendon of left foot (Primary Dx) 11/12/2024 2:15 PM EDT Office Visit Orthopedic Surgery [facility] [address] [phone] Jeremiah Lazo DPM Tear of peroneal tendon of left foot (Primary Dx) 10/16/2024 11:16 AM EST - 10/16/2024 11:59 PM EST Hospital Encounter [facility] MRI [address] [place] [phone] High ankle sprain, left, sequela Discharge Disposition: Home or Self Care 10/07/2024 2:30 PM EST Office Visit Orthopedic Surgery [facility] [address] [phone] Jeremiah Laoz DPM High ankle sprain, left, sequela (Primary Dx); Left ankle pain; Tendinitis of left ankle from Last 3 Months Immunizations Name Administration Dates Next Due H1N1 Inj Preservative Free 07/14/2009 Hepatitis B ([place] , Recombivax HB-Adult) 19yo and older 05/12/2010,12/09/2009,11/11/2009 [...] Grandfather Other: Huntingtons Disease. Maternal Grandmother Other: Randolph's Disease Mother Diabetes Paternal Grandmother Thyroid disease [...] - - Weight 88.9 kg (196 lb) 12/18/2024 10:18 AM EDT Height 167.6 cm (5' 5.98 ) 12/18/2024 10:18 AM E DT Body Mass Index 31.65 12/18/2024 10:18 AM EDT Plan of Treatment Upcoming Encounters Date Type Department Care Team (Late st Contact Info) Description 01/14/2025 10:00 AM EDT Consult Adult Medicine [address] [phone] Susie Thompson MD [address] [place] [address] 01/21/2025 8:00 AM EDT Consult Orthopedic Surgery - [place] [address] [phone] Jeremiah Lazo DPM [address] [address] 01/24/2025 10:15 AM EDT Hospital Encounter [facility] Main OR [address] [place] [phone] Jeremiah Lazo DPM [address] [address] 01/24/2025 10:15 AM EDT - 01/24/2025 11:45 AM EDT Surgery [facility] OR [address] [place] [phone] Jeremiah Lazo DPM [address] [address] REPAIR PERONEAL TENDON LEFT LEG [[id number] (CPT??)] 02/06/2025 2:30 PM EDT Office Visit Orthopedic Surgery - [place] [address] [phone] Jeremiah Lazo DPM [address] [address] Scheduled Procedures Name Priority Associated Diagnoses Date/Ti me REPAIR TENDON LEG Tear of peroneal tendon of left foot 01/24/2025 10:15 AM EDT Health Maintenance Due Date Last Done Comments Social Influencers of Health Screening 08/06/2022 COVID-19 Vaccine ( season) 2024 07/16/2021, 06/18/2021 Cervical Cancer Screening: HPV 09/10/2024 09/10/2019 Depression Screening 12/26/2024 12/27/2023 Influenza Vaccine (Season Ended) 2025 07/03/2020, 06/05/2012, 07/08/2010, Additional history exists Breast Cancer Screening 06/21/2026 06/21/2024, 06/21 Cholesterol [...] age to complete this topic Meningococcal B Vaccine Aged Out No l onger eligible based on patient's age to complete [...] without abnormal findings LIPID PANEL Routine 06/04/2024 HM DEPRESSION SCREENING Routine 12/27/2023 HM HPV Routine 09/10/2019 HEPATITIS C SCREENING Routine [...] Signed Date: 10/17/2024 15:47 ET Workstation ID: [id number] Transcribed By: Self Edit Transcribed Date: 10/17/2024 [...] Signed Date: 10/17/2024 15:47 ET Workstation ID: [id number] Transcribed By: Self Edit Transcribed Date: 10/17/2024 15:43 ET Jeremiah Lazo DPM IMG MRI PROCEDURES Final Result * XR Ankle 3+ Views Left (10/07/2024 2:41 PM EST) Anatomical Region Laterality Modality Lower Extremities, Ankle Left Compute d Radiography Narrative 10/07/2024 5:46 PM EST Left ankle 3 views No acute findings normal alignment without fracture dislocation or malalignment Jeremiah Lazo DPM IMG XR PROCEDURES Final [...] evidence of malignancy. BI-RADS 1 - negative [address] [address] Procedure Note Diana Gonzalez MD - 06/29/2024 [...] evidence of malignancy. BI-RADS 1 - negative [address] [address] Susie Thompson MD IMG XR PROCEDURES Final Result * (ABNORMAL) Lipid panel (06/04/2024) LDL/HDL Ratio 4 0 - 4 Triglycerides 90 0 - 150 mg/dL Cholesterol 224(A) 0 - 200 mg/dL HDL 64 >=40 mg/dL LDL Cholesterol 142(A) 0 - 100 mg/dL Blood Venous blood specimen / Unknown Historical Provider LAB BLOOD ORDERABLES Darlin l Result * Depression Screening (12/27/2023) Pathologist [facility] Depression Screening Abstracted Historical Provider HEALTH MAINTENANCE Final Result * Cervical Cancer Screening: HPV (09/10/2019) Pathologist [facility] Cervical Cancer Screening: HPV Negative, Abstracted Historical Provider HEALTH MAINTENANCE Final Result * HIV Screening (11/29/2017) Pathologist [facility] HIV Screening Abstracted Historical Provider HEALTH MAINTENANCE Final Result * Hepatitis C Screening (11/29/2017) Pathologist [facility] Hepatitis C Screening Abstracted Historical Provider HEALTH MAINTENANCE Final Result from Last 3 Months or Most Recently Relevant to Health Maintenance Insurance [facility] Care Teams Sweatband Perforator Relationship Specialty Start Date End Date Susie Thompson MD [address] [place] [phone] PCP - General Internal Medicine 05/27/22
--- OUTSIDE RECORDS SUMMARY | 2024-12-26 16:17 | XMS_ITS | Encounter Summary ---
Author Organization [facility] Address [address] [place] [address] Care Team Providers Care Planner/Scheduler Name Role Phone Susie Thompson MD Primary Care Prov ider Reason for Visit * Reason Onset Date Comments Surgery iwth Dr Lazo 12/24/2024 Encounter Details Date Type Department Care Team ([facility] Contact Info) Description 12/24/2024 Telephone Orthopedic Surgery - [place] [address] [phone] Jeremiah Lazo, DPM [address] Lazo Social History Tobacco Use Types Packs/Day Years Used Date Smoking Tobacco: Former Smokeless Tobacco: Never Alcohol Use Standard Drinks/Week Comments Yes 0 (1 standard drink = 0.6 oz pur e alcohol) Comments Unknown Sex and Gender Information Value Date Recorded Sex Assigned at Not on file Legal Sex Female 9:10 AM EST Gender Identity Not on file Sexual Orientation Not on file documented as of this encounter Progress Notes * Chelsey Barnett - 12/24/2024 2:33 PM EDT Patient is calling inquiring on the status of her Surgery being scheduled with Dr Lazo as it was originally placed on 11/12, and he again place another on 12/18, which was her recent OV with him Please advise, Please call her back @ [phone] . Thanks. documented in this encounter Plan of Treatment Upcoming Encounters Date Type Department Care Team (Late st Contact Info) Description 01/14/2025 10:00 AM EDT Consult Adult Medicine [facility] [address] [place] [phone] Susie Thompson MD [address] [place] [address] 01/21/2025 8:00 AM EDT Consult Orthopedic [place] [address] [phone] Jeremiah Lazo DPM [address] [address] 01/24/2025 10:15 AM EDT Hospital Encounter [facility] Main OR [address] [place] [phone] Jeremiah Lazo DPM [address] [address] 01/24/2025 10:15 AM EDT - 01/24/2025 11:45 AM EDT Surgery [address] [phone] Jeremiah Lazo DPM [address] [address] REPAIR PERONEAL TENDON LEFT LEG [[id number] (CPT??)] 02/06/2025 2:30 PM EDT Office Visit Orthopedic Surgery [address] [phone] Jeremiah Lazo DPM [address] [address] Scheduled Procedures Name Priority Associated Diagnoses Date/Ti me REPAIR TENDON LEG Tear of peroneal tendon of left foot 01/24/2025 10:15 AM EDT documented as of this encounter Visit Diagnoses Not on filedocumented in this encounter Care Teams Planner/Scheduler Relationship Specialty Start Date End Date Susie Thompson MD [address] [place] [id number] PCP - General Internal Medicine 05/27/22 documented as of this encounter
== END 2024-12-26 14:30 | disposition home or self-care (01) ==
LOC: HO.HBS 14:06
PROVIDERS: PCP Internal Medicine; Visit Provider Physician Assistant Surgical
DX: E66.09 Other obesity due to excess calories (principal); E66.811 Obesity, class 1; Z68.32 Body mass index [BMI] 32.0-32.9, adult; Z98.84 Bariatric surgery status
CPT/HCPCS: 99213

== ENCOUNTER → 2024-12-26 14:06 | Outpatient (BNVA) | payer OTHER, SELFPAY | PROVIDERS: PCP Internal Medicine; Visit Provider Physician Assistant Surgical ==

== ENCOUNTER 2025-02-17 11:31 | Outpatient (AMB) | payer OTHER, SELFPAY ==
--- NOTE | 2025-02-17 11:26 | A.OFFVIS_ITS ---
Intake Visit Reasons: TV PO LSG 11/15/22 GLP-1 Allergies No Known Allergies Allergy (Verified 11/25/24 13:07) HPI Comments Details: 39-year-old female returns to the office today in follow-up. She is approximately 2 years 3 months post sleeve gastrectomy. She was last seen in the office 12/26/2024 with a weight of 195 lb.. She has lost 9 pounds since returning to the [facility] program. She has not been able to weigh herself since her surgery on 01/24/2025 given nonweightbearing status. She underwent surgery on 01/24/25 for L ankle. She is nonweightbearing. She has not been able to exercise as a result. Her follow-up with Orthopedics is in February and she may be able to exercise in the pool at that time, as yet to be determined. based upon waking at 6 am and bed at 10 pm 7-9 am 6 oz ready to drink Premier protein shake mixed with 4 oz of unsweetened almond milk 11-1 other 1/2 of shake 4 pm meal with 7 forks of protein and 7 forks of veggies 730-930 1/2 Quest or pure protein bar Drinking 48-64 oz water daily Exercise plan: walking outside 4 days per week as her ankle pain allows, 3.25 mi. 35 min on stationary bike when she can't walk. [facility] Medical History Insomnia History of COVID-19 Back pain Hyperlipidemia Hypothyroidism Morbid obesity Surgical History H/O gastric sleeve No pertinent past surgical history Family History Mother Gallatin's disease Father Diabetes Hypertension High cholesterol Sister No problems noted. Sister No problems noted. Sister No problems noted. Son No problems noted. Son No problems noted. Social History Household Members: Family Housing: Apartment Are you a primary care aid to a significant other at home: No Do you presently have visiting nurse or other home services: No Alcohol intake: never Patient Tobacco Use Status: Former Tobacco user Tobacco use type: Cigarette Years Smoked: 8 service: No Current occupational status: employed Telehealth Telehealth Telehealth Platform: Telephone Location of provider rendering services: practice address Location of patient: address on file Patient Identification confirmed using: Name, : Yes Telehealth method: voice only Patient verbally consented to treatment: Yes Patient verbally consented to billing insurance company: Yes Patient informed of any privacy concerns related to visit: Yes Minutes spent on Phone/Video with Pt.: 10 Assessment & Plan Assessment & Plan (1) S/P laparoscopic sleeve gastrectomy: Code(s): Z98.84 - Bariatric surgery status Category: Surgical Plan: As patient is unable to weigh herself or do any standing exercises, she will continue her current meal plan. Encouraged to do seated exercises as she is able. She follows up with Orthopedics in mid February and hopefully will be cleared to walk in her swimming pool. She has a 15 ft round above ground swimming pool and may walk in the pool once cleared by ortho. We will have her return to the office in approximately 1 month. Once she gets off her surgical boot, she will get her weight and text me so that we may adjust her meal plan
== END 2025-02-17 11:35 | disposition home or self-care (01) ==
LOC: HO.HBS 11:31
PROVIDERS: PCP Internal Medicine; Visit Provider Physician Assistant Surgical
DX: E66.09 Other obesity due to excess calories (principal); Z68.32 Body mass index [BMI] 32.0-32.9, adult; Z90.3 Acquired absence of stomach [part of]; Z98.84 Bariatric surgery status
CPT/HCPCS: 98012

== ENCOUNTER 2025-03-07 08:02 | Outpatient (AMB) | payer OTHER, SELFPAY ==
[2025-03-07 08:05] VITALS: BP 100/62; PULSE 65; O2SAT 98
--- NOTE | 2025-03-07 08:05 | A.OFFVIS_ITS ---
Vital Signs 03/07/25 08:05 Height 5 ft 5 in BP 100/62 Blood Pressure Location Rt brachial Position Sitting Pulse 65 Pulse Source Pulse Oximeter Pulse Oximetry (%) 98 Oxygen Delivery Method Room Air Intake Visit Reasons: follow up meds Mini Baccarat Dealer Required: No Accompanied by: Self / Same As Patient Allergies No Known Allergies Allergy (Verified 03/07/25 08:09) Medication List - Last Reconciled 03/07/25 by Sahara Trejo MD levothyroxine 50 mcg PO DAILY ropinirole 1-4 tabs a sneeded for breakthrough pain orally daily; ropinirole ER 2 mg PO BEDTIME HPI Comments Details: 40y/o female comes for follow up of restless legs syndrome after 2 years she is doing well on ropinirole Xr 2mg qhs and takes ropinirole 0.25 mg 1-2 tabs as needed for breakthrough. She does well if she takes her XR on time 5 pm. History from her visit in 2022-she reports discomfort at rest and worse at night.she describes the sensation as an annoying tingling sensation that improves with movement.she has trouble falling asleep because of her symptoms and she also has leg movements in sleep. The symptoms usually starts after 8 pm , it is rare during the day. But it can happen during long car ride. she has had these symptoms for several years but feels its worse now. she has frequent arousals at night and has excessive daytime fatigue.she was given 100mg gabapentin but it did not help her. [facility] Medical History Insomnia History of COVID-19 Back pain Hyperlipidemia Hypothyroidism Morbid obesity Surgical History History of ankle surgery H/O gastric sleeve No pertinent past surgical history Family History Mother Carmel's disease Father Diabetes Hypertension High cholesterol Sister No problems noted. Sister No problems noted. Sister No problems noted. Son No problems noted. Son No problems noted. Social History Household Members: Family Housing: Apartment Are you a primary care director rn to a significant other at home: No Do you presently have visiting nurse or other home services: No Alcohol intake: never Patient Tobacco Use Status: Former Tobacco user Tobacco use type: Cigarette Years Smoked: 8 service: No Current occupational status: employed Physical Exam Vital Signs: Last Vital Signs Pulse 65 03/07/25 08:05 BP 100/62 03/07/25 08:05 Pulse Ox 98 03/07/25 08:05 Oxygen Delivery Method Room Air 03/07/25 08:05 Const General: cooperative, healthy appearing and comfortable Nutritional Appearance: average body habitus Orientation/consciousness: patient oriented x3 Eyes Pupils: Equal, round and reactive pupils present Neuro General: patient oriented x3, gait normal, tone normal, moves all extremities and no focal motor deficits Cranial nerves: Yes Facial sensation intact/muscles of mastication intact, Yes Equal, round and reactive pupils present, Yes Bilaterally intact EOM present, Yes Nystagmus not present, Yes Normal facial strength present, Yes Midline tongue present and Yes Symmetric palate elevation present Cognition (Neuro): normal cognition Gait exam (Neuro): Normal gait present Motor exam (neuro): 5/5 motor strength present throughout and Normal motor muscle tone present throughout Assessment & Plan Assessment & Plan (1) Restless leg syndrome: Code(s): G25.81 - Restless legs syndrome Category: Medical (2) Insomnia: Comment: Likely related to restless legs syndrome and possible PLMS Code(s): G47.00 - Insomnia, unspecified Category: Medical Qualifiers: Insomnia type: unspecified Qualified Code(s): G47.00 - Insomnia, unspecified Plan Reviewed labs- normal Ferritin TSH, CBC CMP, Mild anemia Continue ropinirole XR 2mg qhs and ropinirole 0.25 mg as needed for breakthrough symptoms will consider sleep study Orders: Orders RT home sleep study Today G47.00 - Insomnia, unspecified, G47.10 - Hypersomnia, unspecified Medications: Changed From ropinirole ER 2 mg PO BEDTIME 30 tabs 6RF To ropinirole ER 2 mg PO BEDTIME 90 tabs 6RF 90 days Refilled ropinirole 1-4 tabs a sneeded for breakthrough pain orally daily; 120 tabs 4RF Coding Level of Care Code Est Pt Level 4 (73686) Complex EM visit Add On G2211 Diagnoses Restless leg syndrome G25.81 Insomnia, unspecified type G47.00 Insomnia type: unspecified
--- OUTSIDE RECORDS SUMMARY | 2025-03-07 08:06 | XMS_ITS | Clinical Summary ---
Author Organization 175 [facility] Address [address] [place] [address] Phone Care Team Providers Care Facility Sales And Admin Name Role Phone Susie Thompson MD Primary Care Prov ider Allergies Active Allergy Reactions Criticality Noted Date Comments House Dust Sneezing 09/25/2018 rhinitis Tree And Shrub Pollen Runny nose Medium 09/25/2018 TREES Medications rOPINIRole XL (REQUIP XL) 2 mg 24 hr tablet TAKE 1 TABLET BY MOUTH AT BEDTIME 4 Active UNABLE TO FIND IUD'S IU by Intrauterine route Active levothyroxine (SYNTHROID, LEVOTHROID) 50 mcg tablet Take 1 tablet (50 mcg total) by mouth 1 (one) time each day. 90 tablet 3 5 Active oxyCODONE (ROXICODONE) 5 mg immediate release tablet Take 1 tablet (5 mg total) by mouth every 4 (four) hours if needed for severe pain or moderate pain. Max Daily Amount: 30 mg 35 tablet 5 Active aspirin 325 mg capsule Take 1 tablet by mouth 1 (one) time each day. 60 capsule 5 03/25/20 25 Active Active Problems Problem Noted Date Diagnosed Date Tear of peroneal tendon of left foot 11/12/2024 Generalized pruritus 11/12/2018 Hypothyroidism 11/12/2018 Dyslipidemia 12/31/2015 Vitamin D deficiency 12/31/2015 Obesity 02/03/2010 Encounters Date Type Department Care Team Description 02/06/2025 2:30 PM EDT Office Visit Orthopedic Surgery - [place] [address] [phone] Jeremiah Lazo DPM Post-operative state (Primary Dx) 01/24/2025 10:51 AM EDT Anesthesia Event [facility] OR [address] [place] [phone] Holden Roth MD 01/24/2025 10:15 AM EDT - 01/24/2025 11:45 AM EDT Surgery [facility] OR [address] [place] [phone] Jeremiah Lazo DPM REPAIR PERONEAL TENDON LEFT FOOT [[id number] (CPT )] 01/24/2025 8:38 AM EDT - 01/24/2025 2:04 PM EDT Hospital Encounter [facility] OR [address] [place] [phone] Jeremiah Lazo DPM Tear of peroneal tendon of left foot Discharge Disposition: Home or Self Care 01/21/2025 8:00 AM EDT Consult Orthopedic [place] [address] [phone] Jeremiah Lazo DPM Tear of peroneal tendon of left foot (Primary Dx) 01/14/2025 10:00 AM EDT Consult Adult Medicine [address] [phone] Susie Thompson MD Preop cardiovascular exam (Primary Dx); Tear of peroneal tendon of left foot 01/01/2025 Telephone Orthopedic [facility] [address] [phone] Ida Gardner (No PA required Dr Lazo Surgery 01/24/2025) 12/24/2024 Telephone Orthopedic Surgery [facility] [address] [phone] Jeremiah Lazo DPM Surgery [facility] Dr Lazo 12/18/2024 10:15 AM EDT Office Visit Orthopedic Surgery - [place] [address] [place] [address] [address] [place] [phone] Jeremiah Lazo, DPM Tear of peroneal tendon of left foot (Primary Dx) from Last 3 Months Immunizations Name Administration Dates Next Due H1N1 Inj Preservative Free 07/14/2009 Hepatitis B (Sllurtu-V-Lkntl , Recombivax HB-Adult) 19yo and older 05/12/2010,12/09/2009,11/11/2009 [...] Site/Laterality Comments OTHER SURGICAL HISTORY 11/15/2022 PROCEDURE: MO GASTRIC RSTCV W/PRTL GASTRECTOMY 50-100 CM; COMMENT: Gastric sleeve, [facility]ATR[facility] SURG[facility] Medical History Medical History Date Comments Vitamin D deficiency DX:Vitamin D deficiency Obesity DX:Obesity Dyslipidemia DX:Dyslipidemia Hypothyroidism Delayed emergence from general anesthesia Family History Medical History Relation Name Comments Diabetes Father Hyperlipidemia Father Hypertension Father Alcohol abuse Maternal Grandfather Other: Huntingtons Disease. Maternal Grandmother Other: Mobile's Disease Mother Diabetes Paternal Grandmother Thyroid disease [...] Packs/Day Years Used Date Smoking Tobacco: Former Cigarettes Q uit: 2008 Smokeless Tobacco: Never Tobacco Cessation:Counseling Given: Not Answered Alcohol Use Standard Drinks/Week Comments Yes 0 (1 standard drink = 0.6 oz pur e alcohol) rarely Interpersonal Safety Answer Date Record ed Physical Abuse 01/24/2025 Verbal Abuse 01/24/2025 Comments No Sex and Gender Information Value Date Recorded Sex Assigned at Not on file Legal Sex Female 9:10 AM EST Gender Identity Not on file Sexual Orientation Not on file Obstetrics History Last Filed Vital Signs Vital Sign Reading Time Taken Comments Blood Pressure 111/70 01/24/2025 1:14 PM EDT Pulse 61 01/24/2025 1:14 PM EDT Temperature 35.8 C (96.4 F) 01/24/2025 1:14 PM EDT Respiratory Rate 18 01/24/2025 1:14 PM EDT Oxygen Saturation 100% 01/24/2025 1:14 PM EDT Inhaled Oxygen Concentration - - Weight 87.1 kg (192 lb) 01/21/2025 8:00 AM EDT Height 167.6 cm (5' 5.98 ) 01/21/2025 8:00 AM ED T Body Mass Index 31 01/21/2025 8:00 AM EDT Plan of Treatment Upcoming Encounters Date Type Department Care Team (Late st Contact Info) Description 03/12/2025 8:15 AM EDT Office Visit Orthopedic Surgery - [place] [address] [phone] Jeremiah Lazo, DPM [address] [address] Health Maintenance Due Date Last Done Comments Social Influencers of Health Screening 08/06/2022 COVID-19 Vaccine ( season) 2024 07/16/2021, 06/18/2021 Cervical Cancer Screening: HPV 09/10/2024 09/10/2019 Influenza Vaccine (#1) 2025 , 06/05/2012, 07/08/2010, Additional history exists Depression Screening 01/14/2026 01/14/2025, 12/27/19 Breast Cancer Screening 06/21/2026 06/21/2024, 06/21 Cholesterol [...] 5 Years) and At-Risk Patients (6 to 49 Years) Aged Out No longer eligible based on patient's age to complete this topic RSV Immunization Patients Under 20 months Aged Out No longer eligible based on patient's age to complete this topic Varicella Vaccines Aged Out No longer eligible based on patient's age to complete this topic Procedures Procedure Name Priority Date/Time Associated Diagnosis Comments XR FOOT 3+ VIEWS LEFT Routine 02/06/2025 2:57 PM EDT Post-operative state TISSUE EXAM Routine 01/24/2025 11:46 AM EDT Tear of peroneal tendon of left foot TH AN LMA(NO CHARGE) Routine 01/24/2025 11:13 AM EDT MO REPAIR FLEXOR TENDON LEG SECONDARY WITH OR WITHOUT GRAFT EACH TENDON 01/24/2025 10:51 AM EDT Tear of peroneal tendon of left foot SCREENING MAMMOGRAPHY BI 2-VIEW BREAST INC CAD Routine 06/21/2024 2:39 PM EDT Encounter for immunization Encounter for general adult medical examination without abnormal findings LIPID PANEL Routine 06/04/2024 DEPRESSION SCREENING Routine 12/27/2023 HPV Routine 09/10/2019 HEPATITIS C SCREENING Routine 11/29/2017 HIV SCREENING Routine 11/29/2017 from Last 3 Months or Most Recently Relevant to Health Maintenance Results * XR Foot 3+ Views Left (02/06/2025 2:57 PM EDT) Anatomical Region Laterality Modality Lower Extremities, Foot Left Computed Radiography Narrative 02/06/2025 5:39 PM EDT Left foot 3 views Stable post op changes hardware intact reduction deformity maintained us Jeremiah Lazo DPDeb IMG XR PROCEDURES Final R esult * Tissue exam (01/24/2025 11:46 AM EDT) Final Diagnosis Ankle, Left, peroneal tendon-repair: -FIBROTENDINOUS TISSUE WITH DEGENERATIVE CHANGES 01/27/2025 1:23 PM EDT [facility] Gross Description A. Ankle, Left, peroneal tendon tears: Labeled left ankle . Received in formalin is a soft, yellow, 1.3 x 0.8 x 0.2 cm portion of adipose tissue with minimal attached fibrous tissue and two separate portions of tendon measuring 1.0 x 0.3 x 0.15 cm and 2.2 x 0.4 x 0.2 cm. The specimen is sectioned and a investment representative section from each portion of tissue is submitted in one cassette, three pieces (smallest tissue in toto). TS 01/27/2025 1:23 PM EDT [facility] Disclaimer Unless otherwise specified, all tissue is 10% NB formalin fixed and paraffin embedded. 01/27/2025 1:23 PM EDT [facility] Tissue Ankle region structure / Unknown 01/24/2025 11:46 AM EDT 01/24/2025 1:34 PM EDT Jeremiah Lazo DPM LAB PATHOLOGY ORDERABLES Final Result [facility] [address] [place] [address], * TH AN LMA(NO CHARGE) (01/24/2025 11:13 AM EDT) Narrative Malgorzata Martinez CRNA - 01/24/2025 11:13 AM EDT Malgorzata Martinez CRNA 01/24/2025 11:14 AM General Information and Staff Patient location during procedure: OR Performed by: Malgorzata Martinez CRNA Authorized by: Holden Roth MD Intubation Urgency: elective Final Airway Details Number of attempts at approach: 1 LMA Size: 4 LMA Type: LMA Seal Pressure: Final airway type: LMA Indications and Patient Condition Indications for airway management: anesthesia Spontaneous Ventilation: absent Preoxygenated: yes Patient position: sniffing MILS maintained throughout Holden Roth MD ANESTHESIA ORDERABLES Final Re sult * SCREENING MAMMOGRAPHY BI 2-VIEW BREAST INC [...] interpreted with the aid of computer-aided detection. This is a baseline exam. Breast parenchyma is composed of scattered fibroglandular densities. No suspicious mass, architectural distortion, or suspicious calcifications. Impression: No mammographic evidence of malignancy. BI-RADS 1 - negative [address] [address] Procedure Note Diana Gonzalez MD - 06/29/2024 [...] evidence of malignancy. BI-RADS 1 - negative [address] [address] Result [facility] Susie Thompson MD IMG XR PROCEDURES Final Result * (ABNORMAL) Lipid panel (06/04/2024) [facility] LDL/HDL Ratio 4 0 - 4 Triglycerides 90 0 - 150 mg/dL Cholesterol 224(A) 0 - 200 mg/dL HDL 64 >=40 mg/dL LDL Cholesterol 142(A) 0 - 100 mg/dL Blood Venous blood specimen / Unknown Result [facility] Historical Provider LAB BLOOD ORDERABLES Darlin l Result * Depression Screening (12/27/2023) [facility] Depression Screening Abstracted Historical Provider HEALTH MAINTENANCE Final Result * Cervical Cancer Screening: HPV (09/10/2019) [facility] Cervical Cancer Screening: HPV Negative, Abstracted Historical Provider HEALTH MAINTENANCE Final Result * HIV Screening (11/29/2017) [facility] HIV Screening Abstracted [facility] Provider HEALTH MAINTENANCE Final Result * Hepatitis C Screening (11/29/2017) Hepatitis C Screening Abstracted us Historical Provider HEALTH MAINTENANCE Final Result from Last 3 Months or Most Recently Relevant to Health Maintenance Insurance [facility] Care Teams Facility Sales And Admin Relationship Specialty Start Date End Date Susie Thompson MD [address] [place] [id number] PCP - General Internal Medicine 05/27/22
== END 2025-03-07 08:29 | disposition home or self-care (01) ==
LOC: HO.HSMS 08:03
PROVIDERS: PCP Internal Medicine; Visit Provider Psychiatry & Neurology Neurology
DX: G25.81 Restless legs syndrome (principal); G47.00 Insomnia, unspecified
CPT/HCPCS: 99214; G2211

== ENCOUNTER → 2025-03-07 08:02 | Outpatient (BNVA) | payer OTHER, SELFPAY | PROVIDERS: PCP Internal Medicine; Visit Provider Psychiatry & Neurology Neurology | DX: Z71.2 Person consulting for explanation of examination or test findings (principal); G25.81 Restless legs syndrome; G47.00 Insomnia, unspecified | CPT/HCPCS: 99212 ==

== ENCOUNTER 2025-03-24 11:34 | Outpatient (AMB) | payer OTHER, SELFPAY ==
[2025-03-24 10:06] VITALS: BMI 30.3
--- NOTE | 2025-03-24 10:06 | A.OFFVIS_ITS ---
VS Expanded 03/24/25 10:06 Height 5 ft 5 in Weight 182 lb BMI 30.3 Intake Visit Reasons: TV PO LSG 11/15/22 GLP-1 Allergies No Known Allergies Allergy (Verified 03/07/25 08:09) HPI Comments Details: 39-year-old female returns to the office today in follow-up. She is approximately 2 years 4 months post sleeve gastrectomy. She was initially seen in the office after over a year of not being seen, on 11/15/2022. At that time, her weight was 204 lb. She was given a meal plan and exercise plan and weight today is 182 lb with a BMI of 30.3. She has lost 22 lb to date. She underwent surgery on 01/24/25 for L ankle. She is nonweightbearing. She has not been able to exercise as a result. Her follow-up with Orthopedics was in February and she starts PT this monday. She still has the air cast on and she cannot weight bear yet. She continues with neuropathy. She is allowed to go in a pool but was recommended to see PT first. based upon waking at 6 am and bed at 10 pm 7-9 am 6 oz ready to drink Premier protein shake mixed with 4 oz of unsweetened almond milk 11-1 other 1/2 of shake 4 pm meal with 7 forks of protein and 7 forks of veggies 730-930 1/2 Quest or pure protein bar Drinking 48-64 oz water daily Exercise plan: walking outside 4 days per week as her ankle pain allows, 3.25 mi. 35 min on stationary bike when she can't walk. [facility] Medical History Insomnia History of COVID-19 Back pain Hyperlipidemia Hypothyroidism Morbid obesity Surgical History History of ankle surgery H/O gastric sleeve No pertinent past surgical history Family History Mother Deep Water's disease Father Diabetes Hypertension High cholesterol Sister No problems noted. Sister No problems noted. Sister No problems noted. Son No problems noted. Son No problems noted. Social History Household Members: Family Housing: Apartment Are you a primary career and transition teacher to a significant other at home: No Do you presently have visiting nurse or other home services: No Alcohol intake: never Patient Tobacco Use Status: Former Tobacco user Tobacco use type: Cigarette Years Smoked: 8 service: No Current occupational status: employed Telehealth Telehealth Telehealth Platform: Telephone Location of provider rendering services: practice address Location of patient: address on file Patient Identification confirmed using: Name, : Yes Telehealth method: voice only Patient verbally consented to treatment: Yes Patient verbally consented to billing insurance company: Yes Patient informed of any privacy concerns related to visit: Yes Minutes spent on Phone/Video with Pt.: 10 Assessment & Plan Assessment & Plan (1) S/P laparoscopic sleeve gastrectomy: Code(s): Z98.84 - Bariatric surgery status Category: Surgical Plan: Patient has lost 22 lb. She has not been able to exercise in about 6 weeks because of her recent foot surgery. She is hopefully going to be able to walk in the pool. She will continue her current meal plan and follow-up in the office in approximately 1 month. She will text with any questions or concerns. Encouraged to text weights weekly.
--- OUTSIDE RECORDS SUMMARY | 2025-03-24 12:50 | XMS_ITS | Clinical Summary ---
Author Organization 175 [facility] Address [address] [place] [address] Phone Care Team Providers Care Sex Crimes Detective Name Role Phone Susie Thompson MD Primary [...] Encounters Date Type Department Care Team Description 03/12/2025 8:15 AM EDT Office Visit Orthopedic [facility] [place] [address] [phone] Jeremiah Lazo DPM Post-operative state (Primary Dx); Tear of peroneal tendon of left foot 02/06/2025 2:30 PM EDT Office Visit Orthopedic Surgery [facility] [address] [phone] Jeremiah Lazo DPM Post-operative state (Primary Dx) 01/24/2025 10:51 AM EDT Anesthesia Event [facility] [place] [address] [place] [phone] Holden Roth MD 01/24/2025 10:15 AM EDT - 01/24/2025 11:45 AM EDT Surgery [facility] OR [address] [place] [phone] Jeremiah Lazo DPM REPAIR PERONEAL TENDON LEFT FOOT [22421 (CPT )] 01/24/2025 8:38 AM EDT - 01/24/2025 2:04 PM EDT Hospital Encounter [facility] [place] [address] [place] [phone] Jeremiah Lazo DPM Tear of peroneal tendon of left foot Discharge Disposition: Home or Self Care 01/21/2025 8:00 AM EDT Consult Orthopedic Surgery [facility] [address] [phone] Jeremiah Lazo DPM Tear of peroneal tendon of left foot (Primary Dx) 01/14/2025 10:00 AM EDT Consult Adult Medicine [address] [phone] Susie Thompson MD Preop cardiovascular exam (Primary Dx); Tear of peroneal tendon of left foot 01/01/[address] [facility] [address] [phone] Ida Gardner (No PA required Dr Lazo Surgery 01/24/2025) 12/24/2024 Telephone Orthopedic [facility] [place] [address] [place] [address] [place] [phone] Jeremiah Lazo, DPM Surgery iw Dr Lazo from Last 3 Months Immunizations Name Administration Dates Next Due H1N1 Inj Preservative Free 07/14/2009 Hepatitis B (Pthymgx-M-Hetxb , Recombivax HB-Adult) 19yo and older 05/12/2010,12/09/2009,11/11/2009 [...] Site/Laterality Comments OTHER SURGICAL HISTORY 11/15/2022 PROCEDURE: [facility] GASTRIC RSTCV W/PRTL GASTRECTOMY 50-100 CM; COMMENT: Gastric sleeve, [facility] BARIATRIC SURGERY Medical History Medical History Date Comments Vitamin D deficiency DX:Vitamin D deficiency Obesity DX:Obesity Dyslipidemia DX:Dyslipidemia Hypothyroidism Delayed emergence from general anesthesia Family History Medical History Relation Name Comments Diabetes Father Hyperlipidemia Father Hypertension Father Alcohol abuse Maternal Grandfather Other: Huntingtons Disease. Maternal Grandmother Other: [place]'s Disease Mother Diabetes Paternal Grandmother Thyroid disease [...] Care Team (Late st Contact Info) Description 03/28/2025 9:30 AM EDT Evaluation Outpatient Rehabilitation [address] [phone] Tanner Abarca, JAS 05/07/2025 8:15 AM EDT Office Visit Orthopedic Surgery [facility] [place] [address] [phone] Jeremiah Lazo, DPM [address] [phone] Health Maintenance Due Date Last Done Comments Social Influencers of Health Screening 08/06/2022 COVID-19 Vaccine ( season) 2024 07/16/2021, 06/18/2021 Cervical Cancer Screening: HPV 09/10/2024 09/10/2019 Influenza Vaccine (#1) 2025 0, 06/05/2012, 07/08/2010, Additional history exists Breast Cancer Screening 06/21/2026 06/21/2024, 06/21 Cholesterol Screening (Lipid Panel) 06/04/2029 06/04/2024, 06/04/2024 DTaP,Tdap,and Td Vaccines (4 - Td or Tdap) 05/31/2034 05/31/2024, 02/09/2014, 07/14/2009 Hepatitis B Vaccines Completed 05/12/2010, 12/09/2009, 11/11/2009 MMR Vaccines Aged Out 06/12/2012 No longer eligi ble based on patient's age to complete this topic HIV Screening Completed 11/29/2017 Hepatitis C Screening Completed 11/29/2017 Depression Screening Completed 01/14/2025, 12/27/19 24 HIB Vaccines Aged Out No longer eligi [...] Comments XR FOOT 3+ VIEWS LEFT Routine 03/12/2025 8:26 AM EDT Post-operative state XR FOOT 3+ VIEWS LEFT Routine 02/06/2025 2:57 PM EDT Post-operative state TISSUE EXAM Routine 01/24/2025 11:46 AM EDT Tear of peroneal tendon of left foot TH AN LMA(NO CHARGE) Routine 01/24/2025 11:13 AM EDT [facility] REPAIR FLEXOR TENDON LEG SECONDARY WITH OR [...] Results * XR Foot 3+ Views Left (03/12/2025 8:26 AM EDT) Only the most recent of2 resultswithin the time period is included. Anatomical Region Laterality Modality Lower Extremities, Foot Left Computed Radiography Narrative 03/12/2025 2:29 PM EDT Left foot 3 views Stable postoperative changes from soft tissue repair us Jeremiah Lazo DPM IMG XR PROCEDURES Final R esult * Tissue exam (01/24/2025 11:46 AM EDT) Final Diagnosis Ankle, Left, peroneal tendon-repair: -FIBROTENDINOUS TISSUE WITH DEGENERATIVE CHANGES 01/27/2025 1:23 PM EDT [facility] Gross Description A. Ankle, Left, peroneal tendon tears: Labeled left ankle . Received in formalin is a soft, yellow, 1.3 x 0.8 x 0.2 cm portion of adipose tissue with minimal attached fibrous tissue and two separate portions of tendon measuring 1.0 x 0.3 x 0.15 cm and 2.2 x 0.4 x 0.2 cm. The specimen is sectioned and a employee relations representative section from each portion of tissue is submitted in one cassette, three pieces (smallest tissue in toto). TS 01/27/2025 1:23 PM EDT [facility] Disclaimer Unless otherwise specified, all tissue is 10% NB formalin fixed and paraffin embedded. 01/27/2025 1:23 PM EDT [facility] Tissue Ankle region structure / Unknown 01/24/2025 11:46 AM EDT 01/24/2025 1:34 PM EDT Jeremiah Lazo DPM LAB PATHOLOGY ORDERABLES Final Result [facility] [address] [place] [address], * TH AN LMA(NO CHARGE) (01/24/2025 11:13 AM EDT) Malgorzata Joiner CRNA - 01/24/2025 11:13 AM EDT Malgorzata [...] evidence of malignancy. BI-RADS 1 - negative [address] [id number] Procedure Note Diana Gonzalez MD - 06/29/2024 [...] evidence of malignancy. BI-RADS 1 - negative [address] [address] Susie Thompson MD IMG XR PROCEDURES Final Result * (ABNORMAL) Lipid panel (06/04/2024) Pathologist [facility] LDL/HDL Ratio 4 0 - 4 Triglycerides 90 0 - 150 mg/dL Cholesterol 224(A) 0 - 200 mg/dL HDL 64 >=40 mg/dL LDL Cholesterol 142(A) 0 - 100 mg/dL Blood Venous blood specimen / Unknown Historical Provider LAB BLOOD ORDERABLES Darlin l Result * Depression Screening (12/27/2023) Pathologist [facility] Depression Screening Abstracted Historical Provider HEALTH MAINTENANCE Final Result * Cervical Cancer Screening: HPV (09/10/2019) [facility] Cervical Cancer Screening: HPV Negative, Abstracted Historical Provider HEALTH MAINTENANCE Final Result * HIV Screening (11/29/2017) [facility] HIV Screening Abstracted Historical Provider HEALTH MAINTENANCE Final Result * Hepatitis C Screening (11/29/2017) [facility] Hepatitis C Screening Abstracted Historical Provider HEALTH MAINTENANCE Final Result from Last 3 Months or Most Recently Relevant to Health Maintenance Insurance [facility] Care Teams Sex Crimes Detective Relationship Specialty Start Date End Date Susie Thompson MD [address] [place] [phone] PCP - General Internal Medicine 05/27/22
== END 2025-03-24 11:35 | disposition home or self-care (01) ==
LOC: HO.HBS 11:34
PROVIDERS: PCP Internal Medicine; Visit Provider Physician Assistant Surgical
DX: Z98.84 Bariatric surgery status (principal)
CPT/HCPCS: 99213

== ENCOUNTER 2025-05-01 08:45 | Outpatient (AMB) | payer OTHER, SELFPAY ==
[2025-05-01 07:51] VITALS: BMI 30.3
--- NOTE | 2025-05-01 07:51 | A.OFFVIS_ITS ---
VS Expanded 05/01/25 07:51 Height 5 ft 5 in Weight 182 lb BMI 30.3 Intake Visit Reasons: TV PO LSG 11/15/22 GLP-1 Pharmaceutical Operator Required: No Allergies No Known Allergies Allergy (Verified 03/07/25 08:09) Medication List - Last Reconciled 05/01/25 by VLADISLAV Majano levothyroxine 50 mcg PO DAILY ropinirole 1-4 tabs a sneeded for breakthrough pain orally daily; ropinirole ER 2 mg PO BEDTIME 90 days HPI Comments Details: 40-year-old female returns to the office today in follow-up. She is approximately 2 years 6 months post sleeve gastrectomy. She was initially seen in the office after over a year of not being seen, on 11/15/2022. At that time, her weight was 204 lb. She was given a meal plan and exercise plan and weight today is 182 lb with a BMI of 30.3. She has lost 22 lb to date. She underwent surgery on 01/24/25 for L ankle. She has not been able to exercise too much as a result. Her follow-up with Orthopedics was in February and she starts PT this monday. She still has the air cast on and she cannot weight bear yet. She continues with neuropathy. She is allowed to go in a pool but was recommended to see PT first. Follow up with ortho next week. Possible getting into walking boot. based upon waking at 6 am and bed at 10 pm 7-9 am 6 oz ready to drink Premier protein shake mixed with 4 oz of unsweetened almond milk 11-1 other 1/2 of shake 4 pm meal with 7 forks of protein and 7 forks of veggies 730-930 1/2 Quest or pure protein bar Drinking 48-64 oz water daily Exercise plan: limited due to ankle surgery recovery [facility] Medical History Insomnia History of COVID-19 Back pain Hyperlipidemia Hypothyroidism Morbid obesity Surgical History History of ankle surgery H/O gastric sleeve No pertinent past surgical history Family History Mother Villalba's disease Father Diabetes Hypertension High cholesterol Sister No problems noted. Sister No problems noted. Sister No problems noted. Son No problems noted. Son No problems noted. Social History Household Members: Family Housing: Apartment Are you a primary rn intensive care unit to a significant other at home: No Do you presently have visiting nurse or other home services: No Alcohol intake: never Patient Tobacco Use Status: Former Tobacco user Tobacco use type: Cigarette Years Smoked: 8 service: No Current occupational status: employed Telehealth Telehealth Telehealth Platform: Telephone Location of provider rendering services: practice address Location of patient: address on file Patient Identification confirmed using: Name, : Yes Telehealth method: voice only Patient verbally consented to treatment: Yes Patient verbally consented to billing insurance company: Yes Patient informed of any privacy concerns related to visit: Yes Minutes spent on Phone/Video with Pt.: 15 Assessment & Plan Assessment & Plan (1) S/P laparoscopic sleeve gastrectomy: Code(s): Z98.84 - Bariatric surgery status Category: Surgical Plan: Patient has no significant weight loss in the last 4 weeks or so although she has not had any significant weight gain either. She is following the meal plan but has limited exercise capacitance due to the recovery of her ankle surgery. She is walking as she is able. She is supposed to follow up with Orthopedics next week and has been told that she will transition to a walking boot, enabling increased mobility. She expressed some frustration with the boredom of the meal plan but discussed that she is not gaining weight given the lack of exercise. Discussed that at her next appointment, hopefully she will have increased mobility, increased exercise capacitance, and therefore liberalization of her meal plan. She was satisfied with that explanation. We will have her follow-up in the office in 6 weeks
--- OUTSIDE RECORDS SUMMARY | 2025-05-01 09:22 | XMS_ITS | Clinical Summary ---
Author Organization 175 [facility] Address [address] [place] [address] Phone Care Team Providers Care Photo Specialist Name Role Phone Susie Thompson MD Primary [...] Amount: 30 mg 35 tablet 5 Active Active Problems Problem Noted Date Diagnosed Date Tear of peroneal tendon of left foot 11/12/2024 Generalized pruritus 11/12/2018 Hypothyroidism 11/12/2018 Dyslipidemia 12/31/2015 Vitamin D deficiency 12/31/2015 Obesity 02/03/2010 Encounters Date Type Department Care Team Description 04/25/2025 8:30 AM EDT Treatment Outpatient Rehabilitation [address] [phone] Aldair Rob, LEAD SOFTWARE ENGINEER Post-operative state (Primary Dx) 2025 10:30 AM EDT Treatment Outpatient [address] [phone] Tanner Abarca, PT Post-operative state (Primary Dx) 04/18/2025 9:00 AM EDT Treatment Outpatient [address] [phone] Aldair Rob, LEAD SOFTWARE ENGINEER Post-operative state (Primary Dx) 04/15/2025 11:30 AM EDT Treatment Outpatient [address] [phone] Tanner Abarca, PT Post-operative state (Primary Dx) 04/07/2025 9:00 AM EDT Treatment Outpatient [address] [phone] Aldair Rob, LEAD SOFTWARE ENGINEER Post-operative state (Primary Dx) 04/04/2025 9:00 AM EDT Treatment Outpatient [address] [phone] Aldair Rob, LEAD SOFTWARE ENGINEER Post-operative state (Primary Dx) 03/31/2025 9:00 AM EDT Treatment Outpatient [address] [phone] Aldair Rob, LEAD SOFTWARE ENGINEER Post-operative state (Primary Dx) 03/28/2025 9:30 AM EDT Evaluation Outpatient [facility] - [address] [phone] Tanner Abarca, PT Tear of peroneal tendon of left foot (Primary Dx); Post-operative state 03/12/2025 8:15 AM EDT Office Visit Orthopedic Surgery [address] [phone] Jeremiah Lazo, DPM Post-operative state (Primary Dx); Tear of peroneal tendon of left foot 02/06/2025 2:30 PM EDT Office Visit Orthopedic Surgery - [address] [phone] Jeremiah Lazo, DPM Post-operative state (Primary Dx) from Last 3 Months Immunizations Name Administration Dates Next Due H1N1 Inj Preservative Free 07/14/2009 Hepatitis B (Yolahuy-E-Sjbne , Recombivax HB-Adult) 19yo and older 05/12/2010,12/09/2009,11/11/2009 [...] Site/Laterality Comments OTHER SURGICAL HISTORY 11/15/2022 PROCEDURE: [place] GASTRIC RSTCV W/PRTL GASTRECTOMY 50-100 CM; COMMENT: Gastric sleeve, C BARIATRIC SURGERY Medical History Medical History Date Comments Vitamin D deficiency DX:Vitamin D deficiency Obesity DX:Obesity Dyslipidemia DX:Dyslipidemia Hypothyroidism Delayed emergence from general anesthesia Family History Medical History Relation Name Comments Diabetes Father Hyperlipidemia Father Hypertension Father Alcohol abuse Maternal Grandfather Other: Huntingtons Disease. Maternal Grandmother Other: [place]'s Disease Mother Diabetes Paternal Grandmother Thyroid disease [...] Care Team (Late st Contact Info) Description 05/02/2025 8:00 AM EDT Treatment Outpatient [address] [phone] Aldair Rob, LEAD SOFTWARE ENGINEER 05/05/2025 8:30 AM EDT Treatment Outpatient [address] [phone] Aldair Rob, LEAD SOFTWARE ENGINEER 05/07/2025 8:15 AM EDT Office Visit Orthopedic Surgery - [place] [address] [phone] Jeremiah Lazo, DPM [address] [phone] 05/09/2025 9:00 AM EDT Treatment Outpatient [address] [place] [phone] Aldair Rob, LEAD SOFTWARE ENGINEER 05/12/2025 8:30 AM EDT Treatment Outpatient Rehabilitation - [place] [address] [place] [phone] Aldair Rob, LEAD SOFTWARE ENGINEER 05/15/2025 2:00 PM EDT Treatment Outpatient Rehabilitation - [address] [phone] Tanner Abarca, PT 05/20/2025 8:30 AM EDT Treatment Outpatient [facility] - [address] [phone] Tanner Abarca, PT 05/23/2025 8:30 AM EDT Treatment Outpatient [facility] - [address] [phone] Tanner Abarca, PT Health Maintenance Due Date Last Done Comments Social Influencers of Health Screening 08/06/2022 Cervical Cancer Screening: HPV 09/10/2024 09/10/2019 COVID-19 Vaccine ( season) 2025 07/16/2021, 06/18/2021 Influenza Vaccine (#1) 2025 , 06/05/2012, 07/08/2010, Additional history exists Breast Cancer [...] on patient's age to complete this topic Goals Goal Patient Goal Type Associated Problems Recent Progress Patient-Stated? Author STG's 6 visits General Yes Tanner Abarca, PT Note: Pt will demonstrate a 5 degree or better increase in L ankle ROM deficits. Pt will demonstrate L ankle strength of 4/5 or better to prepare her to return PLOF. Pt will demonstrate normal gait pattern w/out CAM boot on indoor surfaces, at liberty. Pt is Independent and compliant with initial HEP. LTG's 12 visits General Yes Tanner Abarca, PT Note: Pt will demonstrate L ankle ROM equal to R ankle ROM. Pt will demonstrate L ankle strength of 4+/5 or better to prepare her to return PLOF. Pt will demonstrate normal gait pattern w/out CAM boot on all surfaces, at liberty. Pt will return to walking 1.5 miles, 3 or more times/week for exercise for general health and weight management. Pt will be Independent and compliant with final HEP. Procedures Procedure Name Priority Date/Time Associated Diagnosis Comments XR FOOT 3+ VIEWS LEFT Routine 03/12/2025 8:26 AM EDT Post-operative state XR FOOT 3+ VIEWS LEFT Routine 02/06/2025 2:57 PM EDT Post-operative state SCREENING MAMMOGRAPHY BI 2-VIEW BREAST INC CAD [...] from soft tissue repair us Jeremiah Lazo DPDeb IMG XR PROCEDURES [...] evidence of malignancy. BI-RADS 1 - negative [facility] [address] [id number] Procedure Note Diana Gonzalez MD - 06/29/2024 [...] evidence of malignancy. BI-RADS 1 - negative [address] [id number] Result [facility] Susie Thompson MD IMG XR PROCEDURES Final Result * (ABNORMAL) Lipid panel (06/04/2024) [facility] LDL/HDL Ratio 4 0 - 4 Triglycerides 90 0 - 150 mg/dL Cholesterol 224(A) 0 - 200 mg/dL HDL 64 >=40 mg/dL LDL Cholesterol 142(A) 0 - 100 mg/dL Blood Venous blood specimen / Unknown Result [facility] Provider LAB BLOOD ORDERABLES Darlin l Result * Depression Screening (12/27/2023) [facility] Depression Screening Abstracted Result [facility] Provider HEALTH MAINTENANCE Final Result * Cervical Cancer Screening: HPV (09/10/2019) [facility] Cervical Cancer Screening: HPV Negative, Abstracted Result [facility] Provider HEALTH MAINTENANCE Final Result * HIV Screening (11/29/2017) [facility] HIV Screening Abstracted Result [facility] Kymberly KONG HEALTH MAINTENANCE Final Result * Hepatitis C Screening (11/29/2017) [facility] Hepatitis C Screening Abstracted Result [facility] Kymberly KONG HEALTH MAINTENANCE Final Result from Last 3 Months or Most Recently Relevant to Health Maintenance Insurance [facility] PLAN Care Teams Photo Specialist Relationship Specialty Start Date End Date Susie Thompson MD [address] [place] [phone] PCP - General Internal Medicine 05/27/22
== END 2025-05-01 09:28 | disposition home or self-care (01) ==
LOC: HO.HBS 08:52
PROVIDERS: PCP Internal Medicine; Visit Provider Physician Assistant Surgical
DX: E66.9 Obesity, unspecified (principal); Z68.30 Body mass index [BMI] 30.0-30.9, adult; Z90.3 Acquired absence of stomach [part of]; Z98.84 Bariatric surgery status
CPT/HCPCS: 98013

== ENCOUNTER → 2025-06-05 09:02 | Outpatient (REF) | payer OTHER, SELFPAY | LOC: HO.SL 09:02 | PROVIDERS: PCP Internal Medicine; Visit Provider Psychiatry & Neurology Neurology | DX: R06.83 Snoring (principal); G47.10 Hypersomnia, unspecified; G47.00 Insomnia, unspecified; R40.0 Somnolence | CPT/HCPCS: 95806 ==

== ENCOUNTER → 2025-06-05 12:38 | Outpatient (BNV) | payer OTHER, SELFPAY | PROVIDERS: PCP Internal Medicine; Visit Provider Psychiatry & Neurology Neurology | DX: R06.83 Snoring (principal) | CPT/HCPCS: 95806 ==